=== PATIENT | male | born 1955 | race Caucasian/White ===

== ENCOUNTER 2016-07-28 17:33 | Emergency (ER) | payer MEDICARE, MEDICAID ==
[~2016-07-28] VITALS: Ht 188 cm; Wt 111.6 kg
[~2016-07-28 17:33] MED LIST: /MIRT30TA OR; /PANT40TA OR; ABIL2TAB OR; ABIL2TAB PO; ACCUKIT13 XX; ACCUMIS XX; ALBU17IN INH; AMBI5TAB PO; ASPI325T OR; ASPI325T PO; ASPI325T10 PO; ATOR1TAB18 PO; BACT800T5 PO; BISAC5TA OR; BLOOKIT20 XX; BUSP1TAB PO; CLOP75TA2 PO; COLA50CA3 PO; CRES20TA OR; DIAB1.25 PO; EFFE75CA75 OR; EFFE75CA75 PO; GLYB25TA OR; HYDROCODONE PO; IBUP200C PO; INSUDET SC; INSUHUMDS SC; JANU100T PO; JANU50TA25 PO; JANU50TA8 PO; JANUMET OR; LYRI100C10 PO; METF1000 PO; NICO21PAT EXT; PANT40TA2 PO; PERC7.5T12 PO; PLAV75TA2 OR; PLAV75TA38 PO; REME30TA PO; SERT-138 PO; SIMV20TA2 PO; TOPR100T OR; TOPR100T PO; TOPR200T PO; TRAM150C5 PO; TRAM50TA2 OR; TYLE325T5 PO; ULTR50TA PO; VICO5TAB OR; VITMTA PO
[2016-07-28] MEDS ORDERED: INSULANT SC (17:45)
[2016-07-28] MEDS ORDERED: LIDOCAINE 1% MDV 20ML VIAL As Ordered ONE (18:03)
[2016-07-28] MEDS ORDERED: LIDOCAINE 1% SDV INJ 30 ML VIAL SC SCH (18:15)
[2016-07-28] MEDS ORDERED: LIDOCAINE 1% MDV 20ML VIAL SC SCH (18:15)
[2016-07-28] MEDS ORDERED: ALPRAZolam 0.25 MG TAB PO ONE (18:30)
[2016-07-28] MEDS ORDERED: BACT800T5 PO (19:03)
[2016-07-28 19:12] VITALS: BP 117/82
[2016-07-28] MEDS ORDERED: OXYCODONE/APAP 5MG/325MG(BULK FOR ED) 1 TABLET PO ONE (19:15)
[2016-07-28] MEDS ORDERED: BACTRIM 160MG/800MG DS TAB PO ONE (19:15)
== END 2016-07-28 19:21 | disposition home or self-care (01) ==
LOC: M ED 18:11
DX: L02.214 Cutaneous abscess of groin (principal); E11.9 Type 2 diabetes mellitus without complications; I25.10 Atherosclerotic heart disease of native coronary artery without angina pectoris; I25.2 Old myocardial infarction; Z79.899 Other long term (current) drug therapy; Z79.4 Long term (current) use of insulin; Z79.84 Long term (current) use of oral hypoglycemic drugs; Z88.1 Allergy status to other antibiotic agents; L23.1 Allergic contact dermatitis due to adhesives; F17.210 Nicotine dependence, cigarettes, uncomplicated

== ENCOUNTER → 2016-12-20 | Outpatient (REF) | payer MEDICARE, MEDICAID ==
[~2016-12-20] MED LIST changes: +AMBI10TA; -ATOR1TAB18 PO; +ATOR80TA59 PO; +DOXY100T PO; +INSULANT SC; -LYRI100C10 PO; -METF1000 PO; +METF10004 PO; +PLAV1TAB2 PO; -PLAV75TA38 PO; +PREG100CA PO; +RISP1TAB42
[2016-12-20 14:00] LABS: BASO % 0.4 % (0.0-1.0); EOS # 0.3 K/mm3 (0.0-0.50); EOS % 2.9 % (0.0-3.0); LARGE UNSTAINED CELL # 0.2 K/mm3 (0.0-0.4); LARGE UNSTAINED CELL % 2.3 % (0.0-4.0); LYMPH # 2.9 K/mm3 (1.5-4.5); LYMPH % 31.8 % (24.0-44.0); MEAN CORPUSCULAR HEMOGLOBIN 31.8 pg (27.0-33.0); MEAN CORPUSCULAR HGB CONC 34.2 g/dl (32.0-36.5); MEAN CORPUSCULAR VOLUME 93.1 fl (80.0-96.0); MONO # 0.6 K/mm3 (0.0-0.8); MONO % 6.3 % (0.0-5.0); NEUTROPHILS # 5.2 K/mm3 (1.8-7.7); NEUTROPHILS % 56.3 % (36.0-66.0); PLATELET COUNT, AUTOMATED 384 k/mm3 (150-450); RED CELL DISTRIBUTION WIDTH 12.6 % (11.5-14.5); WHITE BLOOD COUNT 9.2 K/mm3 (4.0-10.0)
[2016-12-20 14:11] LABS: ALBUMIN 3.6 GM/DL (3.2-5.2); ALBUMIN/GLOBULIN RATIO 1.13 (1.00-1.93); BILIRUBIN,TOTAL 0.2 MG/DL (0.2-1.0); CALCIUM LEVEL 9.5 MG/DL (8.5-10.1); CREATININE FOR GFR 1.49 MG/DL (0.70-1.30); GLOMERULAR FILTRATION RATE 51.4 (>56); TOTAL PROTEIN 6.8 GM/DL (6.4-8.2)
[2016-12-20 14:16] LABS: POTASSIUM SERUM 5.3 MEQ/L (3.5-5.1)
== END ==
LOC: M LABDRAW1 10:21
PROVIDERS: ATTEND Nurse Practitioner Psychiatric/Mental Health
DX: F34.1 Dysthymic disorder (principal); Z79.899 Other long term (current) drug therapy

== ENCOUNTER 2016-12-26 11:10 | Emergency (ER) | payer MEDICARE, MEDICAID ==
[~2016-12-26] VITALS: Ht 188 cm; Wt 106.8 kg
[~2016-12-26 11:10] MED LIST changes: -AMBI10TA; -DOXY100T PO; -RISP1TAB42
[2016-12-26] MEDS ORDERED: AMBI10TA (11:21)
[2016-12-26] MEDS ORDERED: RISP1TAB42 (11:21)
[2016-12-26] MEDS ORDERED: ALBUTEROL SULFATE 2.5 MG/0.5 ML INH NEB SOLN NEB ONE (12:00)
[2016-12-26 12:27] LABS: BASO % 0.4 % (0.0-1.0); EOS # 0.2 10^3/uL (0.0-0.50); EOS % 1.8 % (0.0-3.0); IMMATURE GRANULOCYTE % 0.3 % (0-0); LYMPH # 2.9 10^3/uL (1.5-4.5); LYMPH % 28.7 % (24.0-44.0); MEAN CORPUSCULAR HEMOGLOBIN 30.7 pg (27.0-33.0); MEAN CORPUSCULAR VOLUME 90.1 fl (80.0-96.0); MONO % 9.6 % (0.0-5.0); NEUTROPHILS % 59.2 % (36.0-66.0); PLATELET COUNT, AUTOMATED 338 10^3/uL (150-450); RED CELL DISTRIBUTION WIDTH 12.8 % (11.5-14.5); WHITE BLOOD COUNT 10.1 10^3/uL (4.0-10.0)
[2016-12-26 12:57] LABS: ANION GAP 8 MEQ/L (8-16); BLOOD UREA NITROGEN 20 MG/DL (7-18); CALCIUM LEVEL 9.3 MG/DL (8.5-10.1); CARBON DIOXIDE LEVEL 23 MEQ/L (21-32); CHLORIDE LEVEL 99 MEQ/L (98-107); CREATININE FOR GFR 1.52 MG/DL (0.70-1.30); GLOMERULAR FILTRATION RATE 50.2 (>56); POTASSIUM SERUM 4.5 MEQ/L (3.5-5.1); SODIUM LEVEL 130 MEQ/L (136-145)
[2016-12-26 13:01] LABS: ALBUMIN 3.7 GM/DL (3.2-5.2); ALKALINE PHOSPHATASE 97 U/L (45-117); ALT/SGPT 40 U/L (12-78); AST/SGOT 19 U/L (15-37); BILIRUBIN,DIRECT < 0.1 MG/DL (0.0-0.2); BILIRUBIN,TOTAL 0.3 MG/DL (0.2-1.0); THYROXINE (T4) 11.2 UG/DL (4.5-12.0); TOTAL PROTEIN 7.4 GM/DL (6.4-8.2)
[2016-12-26] MEDS ORDERED: INSULIN HUMAN REGULAR 100 UNITS in NS 99 ML IV SCH (13:03)
[2016-12-26 13:08] LABS: GLUCOSE, FASTING 563 MG/DL (70-105)
[2016-12-26 13:12] LABS: VENOUS BASE EXCESS -4.6 (-2.0-2.0); VENOUS O2 SATURATION 90.8 % (60.0-80.0); VENOUS PARTIAL PRESSURE CO2 37.7 mmHg (38.0-50.0); VENOUS PARTIAL PRESSURE O2 61.1 mmHg (30.0-50.0); VENOUS STANDARD HCO3 20.6 MEQ/L; VENOUS TOTAL CO2 21.6 MEQ/L (24.0-28.0)
[2016-12-26] MEDS ORDERED: INSULIN IV RATE CHANGE DOCUMENTATION ML/HR XX SCH (13:15)
--- NOTE | 2016-12-26 13:35 | REP ---
CHEST, TWO VIEWS: COMPARISON: 10/27/2015. There is no evidence of acute infiltrate. No pleural effusion is seen. The heart is normal in size. The mediastinal silhouette is unremarkable. The visualized osseous structures are intact. There is a single lead pacemaker. IMPRESSION: No acute pulmonary disease. Signed by Hola Mccarthy MD 12/26/2016 05:06 P
[2016-12-26] MEDS ORDERED: NS 1,000 ML IV ONE (13:45)
[2016-12-26 14:37] VITALS: BP 106/60
[2016-12-26] MEDS ORDERED: DOXY100T PO (15:06)
--- NOTE | 2016-12-27 20:38 | ECGEPIP ---
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
[2016-12-29] MEDS ORDERED: INFLUENZA QUADRIVALENT PF VACCINE 0.5ML SYRINGE (90686) IM ONE (09:00)
== END 2016-12-26 15:27 | disposition left against medical advice (07) ==
LOC: M ED 11:10
DX: E11.65 Type 2 diabetes mellitus with hyperglycemia (principal); L02.31 Cutaneous abscess of buttock; I25.10 Atherosclerotic heart disease of native coronary artery without angina pectoris; I25.2 Old myocardial infarction; I10 Essential (primary) hypertension; J44.9 Chronic obstructive pulmonary disease, unspecified; Z72.0 Tobacco use; F12.10 Cannabis abuse, uncomplicated; E78.4 Other hyperlipidemia; Z86.73 Personal history of transient ischemic attack (TIA), and cerebral infarction without residual deficits

== ENCOUNTER → 2017-02-28 | Outpatient (REF) | payer MEDICARE, MEDICAID ==
[~2017-02-28] MED LIST changes: +AMBI10TA; +DOXY100T PO; +RISP1TAB42
[2017-02-28 14:04] LABS: BASO % 0.4 % (0.0-1.0); EOS # 0.3 10^3/uL (0.0-0.50); IMMATURE GRANULOCYTE % 0.4 % (0-0); LYMPH # 3.5 10^3/uL (1.5-4.5); LYMPH % 32.1 % (24.0-44.0); MEAN CORPUSCULAR HEMOGLOBIN 30.1 pg (27.0-33.0); MEAN CORPUSCULAR HGB CONC 33.5 g/dl (32.0-36.5); MEAN CORPUSCULAR VOLUME 89.8 fl (80.0-96.0); MONO # 1.3 10^3/uL (0.0-0.8); NEUTROPHILS # 5.6 10^3/uL (1.8-7.7); NEUTROPHILS % 52.1 % (36.0-66.0); PLATELET COUNT, AUTOMATED 460 10^3/uL (150-450); RED CELL DISTRIBUTION WIDTH 13.2 % (11.5-14.5); WHITE BLOOD COUNT 10.8 10^3/uL (4.0-10.0)
[2017-02-28 14:36] LABS: ALBUMIN 3.5 GM/DL (3.2-5.2); BILIRUBIN,TOTAL 0.2 MG/DL (0.2-1.0); CALCIUM LEVEL 9.4 MG/DL (8.5-10.1); CREATININE FOR GFR 1.48 MG/DL (0.70-1.30); GLOMERULAR FILTRATION RATE 51.8 (>56); POTASSIUM SERUM 4.9 MEQ/L (3.5-5.1)
== END ==
LOC: M LAB REF 12:53
PROVIDERS: ATTEND Family Medicine Addiction Medicine
DX: E11.65 Type 2 diabetes mellitus with hyperglycemia (principal)

== ENCOUNTER → 2017-03-21 | Outpatient (CLI) | payer MEDICARE, MEDICAID | LOC: M PAIN 13:00 | DX: G89.29 Other chronic pain (principal); M54.5 Low back pain; G62.9 Polyneuropathy, unspecified; E11.9 Type 2 diabetes mellitus without complications; I10 Essential (primary) hypertension; F17.210 Nicotine dependence, cigarettes, uncomplicated; Z79.4 Long term (current) use of insulin; Z79.899 Other long term (current) drug therapy; Z86.79 Personal history of other diseases of the circulatory system | CPT/HCPCS: G0463 ==

== ENCOUNTER → 2017-10-03 | Outpatient (REF) | payer MEDICARE ==
[2017-10-03 17:04] LABS: ALBUMIN 3.4 GM/DL (3.2-5.2); ALBUMIN/GLOBULIN RATIO 0.97 (1.00-1.93); ALKALINE PHOSPHATASE 88 U/L (45-117); ALT/SGPT 31 U/L (12-78); ANION GAP 9 MEQ/L (8-16); AST/SGOT 17 U/L (7-37); BILIRUBIN,TOTAL 0.2 MG/DL (0.2-1.0); BLOOD UREA NITROGEN 33 MG/DL (7-18); CALCIUM LEVEL 8.8 MG/DL (8.8-10.2); CARBON DIOXIDE LEVEL 22 MEQ/L (21-32); CHLORIDE LEVEL 104 MEQ/L (98-107); CREATININE FOR GFR 1.62 MG/DL (0.70-1.30); GLOMERULAR FILTRATION RATE 46.5 (>49); GLUCOSE, FASTING 235 MG/DL (70-100); POTASSIUM SERUM 4.6 MEQ/L (3.5-5.1); SODIUM LEVEL 135 MEQ/L (136-145); TOTAL PROTEIN 6.9 GM/DL (6.4-8.2)
[2017-10-03 17:24] LABS: ESTIMATED AVERAGE GLUCOSE 258 MG/DL (60-110); HEMOGLOBIN A1c 10.6 %
== END ==
LOC: M LAB REF 16:31
DX: E11.40 Type 2 diabetes mellitus with diabetic neuropathy, unspecified (principal)
CPT/HCPCS: 80053

== ENCOUNTER → 2017-11-21 | Outpatient (CLI) | payer MEDICARE | LOC: M RAD 08:47 | DX: N18.3 Chronic kidney disease, stage 3 (moderate) (principal) | CPT/HCPCS: 76775 ==

== ENCOUNTER 2018-01-07 12:27 | Emergency (ER) | payer MEDICARE ==
[2018-01-07 13:02] LABS: HEMATOCRIT 40.2 % (42.0-52.0); HEMOGLOBIN 13.3 g/dl (13.5-17.5); MEAN CORPUSCULAR HEMOGLOBIN 29.7 pg (27.0-33.0); MEAN CORPUSCULAR HGB CONC 33.1 g/dl (32.0-36.5); MEAN CORPUSCULAR VOLUME 89.7 fl (80.0-96.0); PLATELET COUNT, AUTOMATED 358 10^3/uL (150-450); RED BLOOD COUNT 4.48 10^6/uL (4.30-6.10); RED CELL DISTRIBUTION WIDTH 14.2 % (11.5-14.5); WHITE BLOOD COUNT 12.5 10^3/uL (4.0-10.0)
[2018-01-07 13:14] LABS: ADD MANUAL DIFFER YES; DIFF SLIDE NUMBER 295; POSITIVE DIFF POS FLAG; POSITIVE MORPH POS FLAG
[2018-01-07 13:22] LABS: ANION GAP 8 MEQ/L (8-16); BLOOD UREA NITROGEN 26 MG/DL (7-18); CALCIUM LEVEL 8.7 MG/DL (8.8-10.2); CARBON DIOXIDE LEVEL 24 MEQ/L (21-32); CHLORIDE LEVEL 106 MEQ/L (98-107); GLOMERULAR FILTRATION RATE 41.2 (>49); GLUCOSE, FASTING 159 MG/DL (70-100); POTASSIUM SERUM 4.5 MEQ/L (3.5-5.1); SODIUM LEVEL 138 MEQ/L (136-145)
[2018-01-07] MEDS: NS 1,000 ML IV ×3 (13:24→15:49)
[2018-01-07 13:34] LABS: EOSINOPHILS 1 % (0-5); LYMPHOCYTES 45 % (16-52); MONOCYTES 2 % (0-8); NEUTROPHILS 52 % (35-75); PLATELET ESTIMATE NORMAL (NORMAL)
[2018-01-07] MEDS: ADACEL/BOOSTRIX VACCINE (DIPHTH/PERTUSS/ACELL/TETANUS)0.5ML SYR (90715) IM (14:29)
[2018-01-07] MEDS: ceFAZolin SOD 1 GM in D5W MINI-BAG PLUS 50 ML IV (14:29)
[2018-01-07 15:39] LABS: ALBUMIN/GLOBULIN RATIO 0.81 (1.00-1.93); ALKALINE PHOSPHATASE 67 U/L (45-117); ALT/SGPT 36 U/L (12-78); AMYLASE 36 U/L (25-115); AST/SGOT 27 U/L (7-37); BILIRUBIN,DIRECT < 0.1 MG/DL (0.0-0.2); BILIRUBIN,TOTAL 0.2 MG/DL (0.2-1.0); CPK CREATINE PHOSPHOKINASE 193 U/L (39-308); MB/CK RELATIVE INDEX 2.07 (< OR =4); TOTAL PROTEIN 6.7 GM/DL (6.4-8.2)
[2018-01-07] MEDS: MORPHINE 2 MG/ML 1ML SYRINGE (J2270) IV (15:49)
[2018-01-07 16:01] LABS: INR 1.04; PROTHROMBIN TIME 13.7 SECONDS (12.1-14.4)
[2018-01-07 16:02] LABS: PARTIAL THROMBOPLASTIN TIME 22.7 SECONDS (25.4-37.6)
[2018-01-07 16:03] LABS: TROPONIN I < 0.02 NG/ML (< 0.10)
[2018-01-07 16:33] LABS: BASO % 0.3 % (0.0-1.0); EOS # 0.3 10^3/uL (0.0-0.50); EOS % 1.6 % (0.0-3.0); HEMATOCRIT 38.2 % (42.0-52.0); HEMOGLOBIN 12.5 g/dl (13.5-17.5); IMMATURE GRANULOCYTE % 0.5 % (0-3.0); LYMPH # 2.6 10^3/uL (1.5-4.5); LYMPH % 16.8 % (24.0-44.0); MEAN CORPUSCULAR HEMOGLOBIN 29.8 pg (27.0-33.0); MEAN CORPUSCULAR HGB CONC 32.7 g/dl (32.0-36.5); MONO # 1.4 10^3/uL (0.0-0.8); NEUTROPHILS # 11.3 10^3/uL (1.8-7.7); NEUTROPHILS % 71.8 % (36.0-66.0); PLATELET COUNT, AUTOMATED 298 10^3/uL (150-450); RED CELL DISTRIBUTION WIDTH 14.3 % (11.5-14.5); WHITE BLOOD COUNT 15.7 10^3/uL (4.0-10.0)
[2018-01-07] MEDS: fentaNYL 100 MCG/2 ML INJECTION (J3010) IV (17:00)
[2018-01-07 17:03] LABS: LACTIC ACID SEPSIS PROTOCOL 1.5 MMOL/L (0.4-2.0)
[2018-01-09 11:22] LABS: BEDSIDE GLUCOSE 167 MG/DL (80-115)
== END 2018-01-07 17:13 | disposition short-term general hospital (02) ==
LOC: M ED 12:27
DX: I20.0 Unstable angina (principal); S82.831A Other fracture of upper and lower end of right fibula, initial encounter for closed fracture; S82.301A Unspecified fracture of lower end of right tibia, initial encounter for closed fracture; W19.XXXA Unspecified fall, initial encounter; Y92.099 Unspecified place in other non-institutional residence as the place of occurrence of the external cause; Y93.9 Activity, unspecified; Y99.9 Unspecified external cause status; I25.10 Atherosclerotic heart disease of native coronary artery without angina pectoris; E11.9 Type 2 diabetes mellitus without complications; I10 Essential (primary) hypertension; F31.9 Bipolar disorder, unspecified; I34.9 Nonrheumatic mitral valve disorder, unspecified; Z72.0 Tobacco use; Z79.4 Long term (current) use of insulin; Z79.899 Other long term (current) drug therapy; Z88.1 Allergy status to other antibiotic agents; Z91.89 Other specified personal risk factors, not elsewhere classified

== ENCOUNTER 2018-01-10 15:00 | Inpatient (IN) | payer MEDICARE ==
[2018-01-10 16:56] LABS: BEDSIDE GLUCOSE 173 MG/DL (80-115)
[2018-01-10] MEDS ORDERED: GLUCOSE 4 GM CHEW TABLET PO (17:00)
[2018-01-10] MEDS: traMADol 50 MG TAB PO (17:00)
[2018-01-10] MEDS ORDERED: NITROGLYCERIN 0.3 MG SUBL TAB SL (17:00)
[2018-01-10] MEDS ORDERED: GLUCAGON FOR INJ 1 MG VIAL (J1610) SC (17:00)
[2018-01-10] MEDS ORDERED: DEXTROSE 50% 50 ML SYRINGE IV (17:00)
[2018-01-10] MEDS ORDERED: ACETAMINOPHEN TAB 650MG DOSE (2X325MG) PO (17:15)
[2018-01-10] MEDS: HumaLOG INSULIN (NovoLOG) PER UNIT SC (18:21)
[2018-01-10] MEDS: PERCOCET 5MG/325MG TAB PO (18:54)
[2018-01-10] MEDS: SENNA 8.6 MG TAB (SENOKOT) PO (21:00)
[2018-01-10] MEDS: DOCUSATE SODIUM 100 MG CAP PO (21:00)
[2018-01-10 21:46] LABS: BEDSIDE GLUCOSE 262 MG/DL (80-115)
[2018-01-10] MEDS: SIMVASTATIN 40 MG TAB PO (21:47)
[2018-01-10] MEDS: LEVEMIR (INSULIN DETEMIR) 1 UNITS/0.01ML SC (21:47)
[2018-01-10] MEDS: busPIRone 5 MG TAB PO (21:47)
[2018-01-10] MEDS: METOPROLOL SUCC *XL* 25MG TAB (TopROL *XL*) PO (21:47)
[2018-01-10] MEDS: VENLAFAXINE **XR** 75MG CAPSULE PO (21:47)
[2018-01-10] MEDS: traZODone 50 MG TAB PO (21:48)
[2018-01-10] MEDS: PREGABALIN 75 MG CAP(LYRICA) PO (21:48)
[2018-01-10] MEDS: AMITRIPTYLINE 25 MG TAB PO (21:48)
[2018-01-10] MEDS: lamoTRIgine 25 MG TAB PO (21:48)
[2018-01-10] MEDS: SODIUM CHLORIDE NASAL 0.65% SPRAY BTL (OCEAN) (21:49)
[2018-01-11 04:05] LABS: APPEARANCE, URINE CLEAR (CLEAR); BACTERIA, URINE AUTO NEGATIVE (NEGATIVE); BILIRUBIN, URINE AUTO NEGATIVE (NEGATIVE); BLOOD, URINE BLOOD NEGATIVE (NEGATIVE); COLOR, URINE YELLOW (YELLOW); GLUCOSE, URINE (UA) AUTO 3+ mg/dL (NEGATIVE); KETONE, URINE AUTO NEGATIVE (NEGATIVE); LEUKOCYTE ESTERASE, URINE AUTO NEGATIVE (NEGATIVE); NITRITE, URINE AUTO NEGATIVE (NEGATIVE); PROTEIN, URINE AUTO NEGATIVE (NEGATIVE); RBC, URINE AUTO 1 /HPF (0-3); SPECIFIC GRAVITY URINE AUTO 1.014 (1.002-1.035); SQUAMOUS EPITHELIAL CELL UR AU 0 /HPF (0-6); WBC, URINE AUTO 0 /HPF (0-3)
[2018-01-11 06:01] LABS: BEDSIDE GLUCOSE 211 MG/DL (80-115)
[2018-01-11 07:08] LABS: BASO % 0.4 % (0.0-1.0); EOS # 0.3 10^3/uL (0.0-0.50); EOS % 3.1 % (0.0-3.0); HEMATOCRIT 34.6 % (42.0-52.0); HEMOGLOBIN 11.4 g/dl (13.5-17.5); IMMATURE GRANULOCYTE % 0.7 % (0-3.0); LYMPH # 2.7 10^3/uL (1.5-4.5); LYMPH % 24.9 % (24.0-44.0); MEAN CORPUSCULAR HEMOGLOBIN 29.7 pg (27.0-33.0); MEAN CORPUSCULAR HGB CONC 32.9 g/dl (32.0-36.5); MEAN CORPUSCULAR VOLUME 90.1 fl (80.0-96.0); MONO # 1.5 10^3/uL (0.0-0.8); MONO % 13.6 % (0.0-5.0); NEUTROPHILS # 6.2 10^3/uL (1.8-7.7); NEUTROPHILS % 57.3 % (36.0-66.0); PLATELET COUNT, AUTOMATED 352 10^3/uL (150-450); RED BLOOD COUNT 3.84 10^6/uL (4.30-6.10); RED CELL DISTRIBUTION WIDTH 13.8 % (11.5-14.5); WHITE BLOOD COUNT 10.8 10^3/uL (4.0-10.0)
[2018-01-11 07:42] LABS: ALBUMIN 2.7 GM/DL (3.2-5.2); ALBUMIN/GLOBULIN RATIO 0.63 (1.00-1.93); ALKALINE PHOSPHATASE 72 U/L (45-117); ALT/SGPT 20 U/L (12-78); ANION GAP 9 MEQ/L (8-16); AST/SGOT 21 U/L (7-37); BILIRUBIN,TOTAL 0.3 MG/DL (0.2-1.0); BLOOD UREA NITROGEN 19 MG/DL (7-18); CALCIUM LEVEL 8.5 MG/DL (8.8-10.2); CARBON DIOXIDE LEVEL 28 MEQ/L (21-32); CHLORIDE LEVEL 101 MEQ/L (98-107); CREATININE FOR GFR 1.19 MG/DL (0.70-1.30); GLOMERULAR FILTRATION RATE > 60.0 (>49); GLUCOSE, FASTING 197 MG/DL (70-100); POTASSIUM SERUM 4.1 MEQ/L (3.5-5.1); SODIUM LEVEL 138 MEQ/L (136-145)
[2018-01-11] MEDS: PERCOCET 5MG/325MG TAB PO ×3 (08:38→20:24)
[2018-01-11] MEDS: SODIUM CHLORIDE NASAL 0.65% SPRAY BTL (OCEAN) ×2 (09:00→20:25)
[2018-01-11] MEDS: DOCUSATE SODIUM 100 MG CAP PO ×2 (09:00→20:31)
[2018-01-11] MEDS: busPIRone 5 MG TAB PO ×3 (09:44→20:23)
[2018-01-11] MEDS: TAMSULOSIN 0.4 MG CAP PO (09:44)
[2018-01-11] MEDS: ENOXAPARIN 40 MG/0.4 ML SYRINGE (J1650) SC (09:44)
[2018-01-11] MEDS: VENLAFAXINE **XR** 75MG CAPSULE PO ×2 (09:44→20:24)
[2018-01-11] MEDS: PANTOPRAZOLE 40MG TAB (PROTONIX) PO (09:44)
[2018-01-11] MEDS: METOPROLOL SUCC *XL* 25MG TAB (TopROL *XL*) PO ×2 (09:45→20:24)
[2018-01-11] MEDS: PREGABALIN 75 MG CAP(LYRICA) PO ×3 (09:45→20:23)
[2018-01-11] MEDS: lamoTRIgine 25 MG TAB PO ×2 (09:45→20:24)
[2018-01-11] MEDS: FLUBLOK(EGG FREE)(QUAD)INFLUENZA VACC 0.5ML SYRINGE (90682)18YRS&OLDER IM (10:36)
[2018-01-11] MEDS: HumaLOG INSULIN (NovoLOG) PER UNIT SC ×3 (10:37→17:49)
[2018-01-11] MEDS: LEVEMIR (INSULIN DETEMIR) 1 UNITS/0.01ML SC ×2 (11:49→20:25)
[2018-01-11 12:01] LABS: BEDSIDE GLUCOSE 171 MG/DL (80-115)
[2018-01-11 16:44] LABS: BEDSIDE GLUCOSE 279 MG/DL (80-115)
[2018-01-11 19:32] LABS: BEDSIDE GLUCOSE 219 MG/DL (80-115)
[2018-01-11] MEDS: traZODone 50 MG TAB PO (20:24)
[2018-01-11] MEDS: SIMVASTATIN 40 MG TAB PO (20:24)
[2018-01-11] MEDS: AMITRIPTYLINE 25 MG TAB PO (20:24)
[2018-01-11] MEDS: SENNA 8.6 MG TAB (SENOKOT) PO (20:31)
[2018-01-12 06:34] LABS: BEDSIDE GLUCOSE 238 MG/DL (80-115)
[2018-01-12] MEDS: busPIRone 5 MG TAB PO ×3 (08:30→21:37)
[2018-01-12] MEDS: PANTOPRAZOLE 40MG TAB (PROTONIX) PO (08:30)
[2018-01-12] MEDS: TAMSULOSIN 0.4 MG CAP PO (08:30)
[2018-01-12] MEDS: DOCUSATE SODIUM 100 MG CAP PO ×2 (08:30→21:37)
[2018-01-12] MEDS: PREGABALIN 75 MG CAP(LYRICA) PO ×3 (08:30→21:37)
[2018-01-12] MEDS: lamoTRIgine 25 MG TAB PO ×2 (08:30→21:37)
[2018-01-12] MEDS: VENLAFAXINE **XR** 75MG CAPSULE PO ×2 (08:30→21:36)
[2018-01-12] MEDS: METOPROLOL SUCC *XL* 25MG TAB (TopROL *XL*) PO ×2 (08:30→21:36)
[2018-01-12] MEDS: PERCOCET 5MG/325MG TAB PO ×4 (08:30→21:46)
[2018-01-12] MEDS: ENOXAPARIN 40 MG/0.4 ML SYRINGE (J1650) SC (08:31)
[2018-01-12] MEDS: LEVEMIR (INSULIN DETEMIR) 1 UNITS/0.01ML SC ×2 (08:31→21:38)
[2018-01-12] MEDS: SODIUM CHLORIDE NASAL 0.65% SPRAY BTL (OCEAN) ×2 (08:31→21:39)
[2018-01-12] MEDS: HumaLOG INSULIN (NovoLOG) PER UNIT SC ×3 (08:31→16:55)
[2018-01-12 11:25] LABS: BEDSIDE GLUCOSE 195 MG/DL (80-115)
[2018-01-12] MEDS: IPRATROPIUM 0.5MG/ALBUTEROL 2.5MG INH SOL UD 3ML (DUONEB)(J7620) NEB (11:30)
[2018-01-12 16:34] LABS: BEDSIDE GLUCOSE 236 MG/DL (80-115)
[2018-01-12 19:38] LABS: BEDSIDE GLUCOSE 263 MG/DL (80-115)
[2018-01-12] MEDS: traZODone 50 MG TAB PO (21:35)
[2018-01-12] MEDS: AMITRIPTYLINE 25 MG TAB PO (21:36)
[2018-01-12] MEDS: SENNA 8.6 MG TAB (SENOKOT) PO (21:38)
[2018-01-12] MEDS: SIMVASTATIN 40 MG TAB PO (21:38)
[2018-01-13 05:45] LABS: BEDSIDE GLUCOSE 223 MG/DL (80-115)
[2018-01-13 06:29] LABS: HEMATOCRIT 34.6 % (42.0-52.0); HEMOGLOBIN 11.5 g/dl (13.5-17.5); MEAN CORPUSCULAR HEMOGLOBIN 29.6 pg (27.0-33.0); MEAN CORPUSCULAR HGB CONC 33.2 g/dl (32.0-36.5); MEAN CORPUSCULAR VOLUME 89.2 fl (80.0-96.0); PLATELET COUNT, AUTOMATED 441 10^3/uL (150-450); RED BLOOD COUNT 3.88 10^6/uL (4.30-6.10); RED CELL DISTRIBUTION WIDTH 13.5 % (11.5-14.5)
[2018-01-13] MEDS: PREGABALIN 75 MG CAP(LYRICA) PO ×3 (08:57→21:20)
[2018-01-13] MEDS: VENLAFAXINE **XR** 75MG CAPSULE PO ×2 (08:57→21:21)
[2018-01-13] MEDS: busPIRone 5 MG TAB PO ×3 (08:57→21:21)
[2018-01-13] MEDS: HumaLOG INSULIN (NovoLOG) PER UNIT SC ×3 (08:57→17:12)
[2018-01-13] MEDS: PANTOPRAZOLE 40MG TAB (PROTONIX) PO (08:57)
[2018-01-13] MEDS: TAMSULOSIN 0.4 MG CAP PO (08:57)
[2018-01-13] MEDS: LEVEMIR (INSULIN DETEMIR) 1 UNITS/0.01ML SC ×2 (08:58→21:22)
[2018-01-13] MEDS: METOPROLOL SUCC *XL* 25MG TAB (TopROL *XL*) PO ×2 (08:58→21:20)
[2018-01-13] MEDS: lamoTRIgine 25 MG TAB PO ×2 (08:58→21:21)
[2018-01-13] MEDS: SODIUM CHLORIDE NASAL 0.65% SPRAY BTL (OCEAN) ×2 (08:59→21:22)
[2018-01-13] MEDS: ENOXAPARIN 40 MG/0.4 ML SYRINGE (J1650) SC (08:59)
[2018-01-13] MEDS: DOCUSATE SODIUM 100 MG CAP PO ×2 (09:01→20:14)
[2018-01-13] MEDS: PERCOCET 5MG/325MG TAB PO ×3 (09:01→18:38)
[2018-01-13 11:51] LABS: BEDSIDE GLUCOSE 266 MG/DL (80-115)
[2018-01-13 17:09] LABS: BEDSIDE GLUCOSE 231 MG/DL (80-115)
[2018-01-13] MEDS: LIDOCAINE 5% (LIDODERM) PATCH TD (18:38)
[2018-01-13] MEDS: SENNA 8.6 MG TAB (SENOKOT) PO (20:15)
[2018-01-13 21:09] LABS: BEDSIDE GLUCOSE 269 MG/DL (80-115)
[2018-01-13] MEDS: traZODone 50 MG TAB PO (21:20)
[2018-01-13] MEDS: AMITRIPTYLINE 25 MG TAB PO (21:21)
[2018-01-13] MEDS: SIMVASTATIN 40 MG TAB PO (21:21)
[2018-01-14] MEDS: **NOTE PATIENT COMMENT** MISC XX (06:00)
[2018-01-14 07:10] LABS: BEDSIDE GLUCOSE 242 MG/DL (80-115)
[2018-01-14] MEDS: PREGABALIN 75 MG CAP(LYRICA) PO ×3 (08:50→21:52)
[2018-01-14] MEDS: ENOXAPARIN 40 MG/0.4 ML SYRINGE (J1650) SC (08:50)
[2018-01-14] MEDS: HumaLOG INSULIN (NovoLOG) PER UNIT SC ×3 (08:50→17:55)
[2018-01-14] MEDS: TAMSULOSIN 0.4 MG CAP PO (08:51)
[2018-01-14] MEDS: METOPROLOL SUCC *XL* 25MG TAB (TopROL *XL*) PO ×2 (08:51→21:53)
[2018-01-14] MEDS: PERCOCET 5MG/325MG TAB PO ×3 (08:51→20:10)
[2018-01-14] MEDS: busPIRone 5 MG TAB PO ×3 (08:52→21:52)
[2018-01-14] MEDS: DOCUSATE SODIUM 100 MG CAP PO ×2 (08:52→21:00)
[2018-01-14] MEDS: PANTOPRAZOLE 40MG TAB (PROTONIX) PO (08:52)
[2018-01-14] MEDS: VENLAFAXINE **XR** 75MG CAPSULE PO ×2 (08:52→21:52)
[2018-01-14] MEDS: lamoTRIgine 25 MG TAB PO ×2 (08:52→21:52)
[2018-01-14] MEDS: SODIUM CHLORIDE NASAL 0.65% SPRAY BTL (OCEAN) ×2 (08:53→21:53)
[2018-01-14] MEDS: LEVEMIR (INSULIN DETEMIR) 1 UNITS/0.01ML SC ×3 (08:53→21:52)
[2018-01-14 11:31] LABS: BEDSIDE GLUCOSE 329 MG/DL (80-115)
[2018-01-14 16:49] LABS: BEDSIDE GLUCOSE 344 MG/DL (80-115)
[2018-01-14] MEDS: NovoLOG MIX 70/30 PER UNIT SC (18:13)
[2018-01-14 19:43] LABS: BEDSIDE GLUCOSE 248 MG/DL (80-115)
[2018-01-14] MEDS: SENNA 8.6 MG TAB (SENOKOT) PO (21:00)
[2018-01-14] MEDS: SIMVASTATIN 40 MG TAB PO (21:52)
[2018-01-14] MEDS: traZODone 50 MG TAB PO (21:53)
[2018-01-14] MEDS: AMITRIPTYLINE 25 MG TAB PO (21:53)
[2018-01-15 06:46] LABS: BEDSIDE GLUCOSE 245 MG/DL (80-115)
[2018-01-15] MEDS: PERCOCET 5MG/325MG TAB PO ×3 (07:38→18:13)
[2018-01-15] MEDS: HumaLOG INSULIN (NovoLOG) PER UNIT SC ×3 (08:54→17:11)
[2018-01-15] MEDS: LEVEMIR (INSULIN DETEMIR) 1 UNITS/0.01ML SC ×2 (08:54→21:14)
[2018-01-15] MEDS: ENOXAPARIN 40 MG/0.4 ML SYRINGE (J1650) SC (08:54)
[2018-01-15] MEDS: TAMSULOSIN 0.4 MG CAP PO (08:55)
[2018-01-15] MEDS: PANTOPRAZOLE 40MG TAB (PROTONIX) PO (08:55)
[2018-01-15] MEDS: NovoLOG MIX 70/30 PER UNIT SC ×3 (08:55→17:12)
[2018-01-15] MEDS: SODIUM CHLORIDE NASAL 0.65% SPRAY BTL (OCEAN) ×2 (08:56→21:42)
[2018-01-15] MEDS: PREGABALIN 75 MG CAP(LYRICA) PO ×3 (08:56→21:17)
[2018-01-15] MEDS: busPIRone 5 MG TAB PO ×3 (08:56→21:16)
[2018-01-15] MEDS: lamoTRIgine 25 MG TAB PO ×2 (08:56→21:17)
[2018-01-15] MEDS: VENLAFAXINE **XR** 75MG CAPSULE PO ×2 (08:56→21:16)
[2018-01-15] MEDS: DOCUSATE SODIUM 100 MG CAP PO ×2 (08:57→21:42)
[2018-01-15] MEDS: METOPROLOL SUCC *XL* 25MG TAB (TopROL *XL*) PO ×2 (08:57→21:17)
[2018-01-15 11:47] LABS: BEDSIDE GLUCOSE 317 MG/DL (80-115)
[2018-01-15 16:40] LABS: BEDSIDE GLUCOSE 324 MG/DL (80-115)
[2018-01-15] MEDS: AMITRIPTYLINE 25 MG TAB PO (21:15)
[2018-01-15 21:16] LABS: BEDSIDE GLUCOSE 195 MG/DL (80-115)
[2018-01-15] MEDS: SIMVASTATIN 40 MG TAB PO (21:17)
[2018-01-15] MEDS: traZODone 50 MG TAB PO (21:17)
[2018-01-15] MEDS: SENNA 8.6 MG TAB (SENOKOT) PO (21:42)
[2018-01-16 06:15] LABS: BEDSIDE GLUCOSE 246 MG/DL (80-115)
[2018-01-16] MEDS: PERCOCET 5MG/325MG TAB PO ×3 (07:26→21:04)
[2018-01-16] MEDS: NovoLOG MIX 70/30 PER UNIT SC ×3 (07:39→16:48)
[2018-01-16] MEDS: HumaLOG INSULIN (NovoLOG) PER UNIT SC ×3 (07:39→16:47)
[2018-01-16 08:17] LABS: HEMATOCRIT 34.9 % (42.0-52.0); HEMOGLOBIN 11.4 g/dl (13.5-17.5); MEAN CORPUSCULAR HEMOGLOBIN 29.1 pg (27.0-33.0); MEAN CORPUSCULAR HGB CONC 32.7 g/dl (32.0-36.5); PLATELET COUNT, AUTOMATED 525 10^3/uL (150-450); RED BLOOD COUNT 3.92 10^6/uL (4.30-6.10); RED CELL DISTRIBUTION WIDTH 13.4 % (11.5-14.5); WHITE BLOOD COUNT 10.9 10^3/uL (4.0-10.0)
[2018-01-16] MEDS: DOCUSATE SODIUM 100 MG CAP PO ×2 (09:00→21:00)
[2018-01-16] MEDS: SODIUM CHLORIDE NASAL 0.65% SPRAY BTL (OCEAN) ×2 (09:00→21:00)
[2018-01-16] MEDS: ENOXAPARIN 40 MG/0.4 ML SYRINGE (J1650) SC (10:00)
[2018-01-16] MEDS: TAMSULOSIN 0.4 MG CAP PO (10:00)
[2018-01-16] MEDS: PREGABALIN 75 MG CAP(LYRICA) PO ×3 (10:01→21:03)
[2018-01-16] MEDS: busPIRone 5 MG TAB PO ×3 (10:01→21:02)
[2018-01-16] MEDS: lamoTRIgine 25 MG TAB PO ×2 (10:01→21:03)
[2018-01-16] MEDS: METOPROLOL SUCC *XL* 25MG TAB (TopROL *XL*) PO ×2 (10:01→21:03)
[2018-01-16] MEDS: VENLAFAXINE **XR** 75MG CAPSULE PO ×2 (10:01→21:07)
[2018-01-16] MEDS: PANTOPRAZOLE 40MG TAB (PROTONIX) PO (10:02)
[2018-01-16] MEDS: LEVEMIR (INSULIN DETEMIR) 1 UNITS/0.01ML SC ×2 (10:02→21:02)
[2018-01-16 11:31] LABS: BEDSIDE GLUCOSE 221 MG/DL (80-115)
[2018-01-16 16:27] LABS: BEDSIDE GLUCOSE 279 MG/DL (80-115)
[2018-01-16 20:54] LABS: BEDSIDE GLUCOSE 199 MG/DL (80-115)
[2018-01-16] MEDS: SENNA 8.6 MG TAB (SENOKOT) PO (21:00)
[2018-01-16] MEDS: AMITRIPTYLINE 25 MG TAB PO (21:02)
[2018-01-16] MEDS: SIMVASTATIN 40 MG TAB PO (21:03)
[2018-01-16] MEDS: traZODone 50 MG TAB PO (21:07)
[2018-01-17 06:45] LABS: BEDSIDE GLUCOSE 208 MG/DL (80-115)
[2018-01-17] MEDS: PERCOCET 5MG/325MG TAB PO ×3 (07:56→17:50)
[2018-01-17] MEDS: LEVEMIR (INSULIN DETEMIR) 1 UNITS/0.01ML SC ×2 (07:57→22:40)
[2018-01-17] MEDS: NovoLOG MIX 70/30 PER UNIT SC ×3 (07:58→17:10)
[2018-01-17] MEDS: HumaLOG INSULIN (NovoLOG) PER UNIT SC ×3 (08:00→17:09)
[2018-01-17] MEDS: DOCUSATE SODIUM 100 MG CAP PO ×2 (09:26→22:41)
[2018-01-17] MEDS: VENLAFAXINE **XR** 75MG CAPSULE PO ×2 (09:26→22:39)
[2018-01-17] MEDS: ENOXAPARIN 40 MG/0.4 ML SYRINGE (J1650) SC (09:26)
[2018-01-17] MEDS: lamoTRIgine 25 MG TAB PO ×2 (09:27→22:38)
[2018-01-17] MEDS: TAMSULOSIN 0.4 MG CAP PO (09:27)
[2018-01-17] MEDS: busPIRone 5 MG TAB PO ×3 (09:27→22:38)
[2018-01-17] MEDS: METOPROLOL SUCC *XL* 25MG TAB (TopROL *XL*) PO ×2 (09:27→22:39)
[2018-01-17] MEDS: PANTOPRAZOLE 40MG TAB (PROTONIX) PO (09:27)
[2018-01-17] MEDS: PREGABALIN 75 MG CAP(LYRICA) PO ×3 (09:27→22:38)
[2018-01-17] MEDS: SODIUM CHLORIDE NASAL 0.65% SPRAY BTL (OCEAN) ×2 (09:28→22:40)
[2018-01-17 11:54] LABS: BEDSIDE GLUCOSE 202 MG/DL (80-115)
[2018-01-17] MEDS: BACTRIM 160MG/800MG DS TAB PO ×2 (15:33→22:39)
[2018-01-17 16:53] LABS: BEDSIDE GLUCOSE 226 MG/DL (80-115)
[2018-01-17 20:24] LABS: BEDSIDE GLUCOSE 195 MG/DL (80-115)
[2018-01-17] MEDS: SIMVASTATIN 40 MG TAB PO (22:39)
[2018-01-17] MEDS: traZODone 50 MG TAB PO (22:39)
[2018-01-17] MEDS: AMITRIPTYLINE 25 MG TAB PO (22:39)
[2018-01-17] MEDS: SENNA 8.6 MG TAB (SENOKOT) PO (22:41)
[2018-01-18 06:03] LABS: BASO # 0.1 10^3/uL (0.0-0.2); BASO % 0.5 % (0.0-1.0); EOS # 0.4 10^3/uL (0.0-0.50); EOS % 3.2 % (0.0-3.0); HEMATOCRIT 34.9 % (42.0-52.0); HEMOGLOBIN 11.2 g/dl (13.5-17.5); IMMATURE GRANULOCYTE % 0.8 % (0-3.0); LYMPH # 3.1 10^3/uL (1.5-4.5); LYMPH % 26.5 % (24.0-44.0); MEAN CORPUSCULAR HEMOGLOBIN 28.7 pg (27.0-33.0); MEAN CORPUSCULAR HGB CONC 32.1 g/dl (32.0-36.5); MEAN CORPUSCULAR VOLUME 89.5 fl (80.0-96.0); MONO # 1.5 10^3/uL (0.0-0.8); MONO % 12.4 % (0.0-5.0); NEUTROPHILS # 6.7 10^3/uL (1.8-7.7); NEUTROPHILS % 56.6 % (36.0-66.0); PLATELET COUNT, AUTOMATED 553 10^3/uL (150-450); RED CELL DISTRIBUTION WIDTH 13.5 % (11.5-14.5); WHITE BLOOD COUNT 11.8 10^3/uL (4.0-10.0)
[2018-01-18 06:34] LABS: ANION GAP 9 MEQ/L (8-16); BLOOD UREA NITROGEN 18 MG/DL (7-18); CALCIUM LEVEL 9.2 MG/DL (8.8-10.2); CARBON DIOXIDE LEVEL 25 MEQ/L (21-32); CHLORIDE LEVEL 103 MEQ/L (98-107); CREATININE FOR GFR 1.26 MG/DL (0.70-1.30); GLOMERULAR FILTRATION RATE > 60.0 (>49); GLUCOSE, FASTING 211 MG/DL (70-100); POTASSIUM SERUM 4.6 MEQ/L (3.5-5.1); SODIUM LEVEL 137 MEQ/L (136-145)
[2018-01-18] MEDS: NovoLOG MIX 70/30 PER UNIT SC ×3 (08:58→17:31)
[2018-01-18] MEDS: ENOXAPARIN 40 MG/0.4 ML SYRINGE (J1650) SC (08:59)
[2018-01-18] MEDS: HumaLOG INSULIN (NovoLOG) PER UNIT SC ×3 (08:59→17:30)
[2018-01-18] MEDS: LEVEMIR (INSULIN DETEMIR) 1 UNITS/0.01ML SC ×2 (08:59→21:31)
[2018-01-18] MEDS: PERCOCET 5MG/325MG TAB PO ×2 (09:00→17:31)
[2018-01-18] MEDS: TAMSULOSIN 0.4 MG CAP PO (09:00)
[2018-01-18] MEDS: busPIRone 5 MG TAB PO ×3 (09:00→21:28)
[2018-01-18] MEDS: DOCUSATE SODIUM 100 MG CAP PO ×2 (09:00→21:32)
[2018-01-18] MEDS: PANTOPRAZOLE 40MG TAB (PROTONIX) PO (09:00)
[2018-01-18] MEDS: lamoTRIgine 25 MG TAB PO ×2 (09:01→21:32)
[2018-01-18] MEDS: BACTRIM 160MG/800MG DS TAB PO ×2 (09:01→21:29)
[2018-01-18] MEDS: PREGABALIN 75 MG CAP(LYRICA) PO ×3 (09:01→21:28)
[2018-01-18] MEDS: VENLAFAXINE **XR** 75MG CAPSULE PO ×2 (09:01→21:29)
[2018-01-18] MEDS: SODIUM CHLORIDE NASAL 0.65% SPRAY BTL (OCEAN) ×2 (09:02→21:33)
[2018-01-18] MEDS: METOPROLOL SUCC *XL* 25MG TAB (TopROL *XL*) PO ×2 (09:02→21:29)
[2018-01-18 11:22] LABS: BEDSIDE GLUCOSE 224 MG/DL (80-115)
[2018-01-18 16:23] LABS: BEDSIDE GLUCOSE 233 MG/DL (80-115)
[2018-01-18 19:12] LABS: BEDSIDE GLUCOSE 273 MG/DL (80-115)
[2018-01-18] MEDS: AMITRIPTYLINE 25 MG TAB PO (21:28)
[2018-01-18] MEDS: SIMVASTATIN 40 MG TAB PO (21:29)
[2018-01-18] MEDS: traZODone 50 MG TAB PO (21:30)
[2018-01-18] MEDS: SENNA 8.6 MG TAB (SENOKOT) PO (21:32)
[2018-01-19 06:41] LABS: BEDSIDE GLUCOSE 174 MG/DL (80-115)
[2018-01-19 07:40] LABS: HEMATOCRIT 35.3 % (42.0-52.0); HEMOGLOBIN 11.4 g/dl (13.5-17.5); MEAN CORPUSCULAR HEMOGLOBIN 28.4 pg (27.0-33.0); MEAN CORPUSCULAR HGB CONC 32.3 g/dl (32.0-36.5); PLATELET COUNT, AUTOMATED 573 10^3/uL (150-450); RED BLOOD COUNT 4.01 10^6/uL (4.30-6.10); RED CELL DISTRIBUTION WIDTH 13.5 % (11.5-14.5); WHITE BLOOD COUNT 10.9 10^3/uL (4.0-10.0)
[2018-01-19] MEDS: PERCOCET 5MG/325MG TAB PO ×2 (07:40→13:50)
[2018-01-19] MEDS: HumaLOG INSULIN (NovoLOG) PER UNIT SC ×3 (09:11→17:03)
[2018-01-19] MEDS: NovoLOG MIX 70/30 PER UNIT SC ×3 (09:11→17:03)
[2018-01-19] MEDS: LEVEMIR (INSULIN DETEMIR) 1 UNITS/0.01ML SC ×2 (09:12→20:43)
[2018-01-19] MEDS: TAMSULOSIN 0.4 MG CAP PO (09:13)
[2018-01-19] MEDS: ENOXAPARIN 40 MG/0.4 ML SYRINGE (J1650) SC (09:13)
[2018-01-19] MEDS: PREGABALIN 75 MG CAP(LYRICA) PO ×3 (09:13→20:43)
[2018-01-19] MEDS: METOPROLOL SUCC *XL* 25MG TAB (TopROL *XL*) PO ×2 (09:13→20:44)
[2018-01-19] MEDS: VENLAFAXINE **XR** 75MG CAPSULE PO ×2 (09:13→20:43)
[2018-01-19] MEDS: lamoTRIgine 25 MG TAB PO ×2 (09:14→20:44)
[2018-01-19] MEDS: DOCUSATE SODIUM 100 MG CAP PO ×2 (09:14→20:45)
[2018-01-19] MEDS: BACTRIM 160MG/800MG DS TAB PO ×2 (09:14→20:43)
[2018-01-19] MEDS: PANTOPRAZOLE 40MG TAB (PROTONIX) PO (09:14)
[2018-01-19] MEDS: busPIRone 5 MG TAB PO ×3 (09:14→20:43)
[2018-01-19] MEDS: SODIUM CHLORIDE NASAL 0.65% SPRAY BTL (OCEAN) ×2 (09:15→20:45)
[2018-01-19 11:47] LABS: BEDSIDE GLUCOSE 145 MG/DL (80-115)
[2018-01-19 16:46] LABS: BEDSIDE GLUCOSE 316 MG/DL (80-115)
[2018-01-19 19:44] LABS: BEDSIDE GLUCOSE 225 MG/DL (80-115)
[2018-01-19] MEDS: AMITRIPTYLINE 25 MG TAB PO (20:43)
[2018-01-19] MEDS: SIMVASTATIN 40 MG TAB PO (20:43)
[2018-01-19] MEDS: traZODone 50 MG TAB PO (20:43)
[2018-01-19] MEDS: SENNA 8.6 MG TAB (SENOKOT) PO (20:45)
[2018-01-20 06:01] LABS: BEDSIDE GLUCOSE 177 MG/DL (80-115)
[2018-01-20] MEDS: HumaLOG INSULIN (NovoLOG) PER UNIT SC ×2 (08:38→12:12)
[2018-01-20] MEDS: busPIRone 5 MG TAB PO (08:39)
[2018-01-20] MEDS: BACTRIM 160MG/800MG DS TAB PO (08:39)
[2018-01-20] MEDS: NovoLOG MIX 70/30 PER UNIT SC ×2 (08:39→12:12)
[2018-01-20] MEDS: METOPROLOL SUCC *XL* 25MG TAB (TopROL *XL*) PO (08:40)
[2018-01-20] MEDS: PERCOCET 5MG/325MG TAB PO ×2 (08:41→13:09)
[2018-01-20] MEDS: VENLAFAXINE **XR** 75MG CAPSULE PO (08:41)
[2018-01-20] MEDS: PANTOPRAZOLE 40MG TAB (PROTONIX) PO (08:41)
[2018-01-20] MEDS: lamoTRIgine 25 MG TAB PO (08:41)
[2018-01-20] MEDS: TAMSULOSIN 0.4 MG CAP PO (08:41)
[2018-01-20] MEDS: PREGABALIN 75 MG CAP(LYRICA) PO (08:41)
[2018-01-20] MEDS: DOCUSATE SODIUM 100 MG CAP PO (08:42)
[2018-01-20] MEDS: LEVEMIR (INSULIN DETEMIR) 1 UNITS/0.01ML SC (08:42)
[2018-01-20] MEDS: ENOXAPARIN 40 MG/0.4 ML SYRINGE (J1650) SC (08:42)
[2018-01-20] MEDS: SODIUM CHLORIDE NASAL 0.65% SPRAY BTL (OCEAN) (08:42)
[2018-01-20 11:47] LABS: BEDSIDE GLUCOSE 162 MG/DL (80-115)
== END 2018-01-20 13:15 | disposition home or self-care (01) | DRG 561 ==
LOC: M PM&R 15:00
PROVIDERS: Physical Medicine & Rehabilitation
DX: S82.831D Other fracture of upper and lower end of right fibula, subsequent encounter for closed fracture with routine healing (principal); S82.301D Unspecified fracture of lower end of right tibia, subsequent encounter for closed fracture with routine healing; R26.81 Unsteadiness on feet; M54.5 Low back pain; Y92.9 Unspecified place or not applicable; E11.9 Type 2 diabetes mellitus without complications; F31.9 Bipolar disorder, unspecified; I10 Essential (primary) hypertension; Z95.810 Presence of automatic (implantable) cardiac defibrillator; Z95.5 Presence of coronary angioplasty implant and graft; Z79.4 Long term (current) use of insulin; Z79.899 Other long term (current) drug therapy; Z88.1 Allergy status to other antibiotic agents; Z91.048 Other nonmedicinal substance allergy status; I25.10 Atherosclerotic heart disease of native coronary artery without angina pectoris; Z95.1 Presence of aortocoronary bypass graft; W18.30XD Fall on same level, unspecified, subsequent encounter; L02.224 Furuncle of groin; R55 Syncope and collapse

== ENCOUNTER 2018-02-19 16:50 | Inpatient (IN) | payer MEDICARE ==
[2018-02-19 18:10] LABS: BASO # 0.1 10^3/uL (0.0-0.2); BASO % 0.3 % (0.0-1.0); EOS # 0.2 10^3/uL (0.0-0.50); EOS % 0.9 % (0.0-3.0); HEMATOCRIT 39.7 % (42.0-52.0); HEMOGLOBIN 12.9 g/dl (13.5-17.5); IMMATURE GRANULOCYTE % 0.4 % (0-3.0); LYMPH # 2.4 10^3/uL (1.5-4.5); LYMPH % 14.9 % (24.0-44.0); MEAN CORPUSCULAR HEMOGLOBIN 28.7 pg (27.0-33.0); MEAN CORPUSCULAR HGB CONC 32.5 g/dl (32.0-36.5); MEAN CORPUSCULAR VOLUME 88.2 fl (80.0-96.0); MONO # 1.4 10^3/uL (0.0-0.8); MONO % 8.4 % (0.0-5.0); NEUTROPHILS # 12.3 10^3/uL (1.8-7.7); NEUTROPHILS % 75.1 % (36.0-66.0); PLATELET COUNT, AUTOMATED 416 10^3/uL (150-450); WHITE BLOOD COUNT 16.4 10^3/uL (4.0-10.0)
[2018-02-19 18:14] LABS: INR 1.03; PARTIAL THROMBOPLASTIN TIME 25.4 SECONDS (25.4-37.6); PROTHROMBIN TIME 13.7 SECONDS (12.1-14.4)
[2018-02-19 18:18] LABS: ALBUMIN 3.4 GM/DL (3.2-5.2); ALBUMIN/GLOBULIN RATIO 0.97 (1.00-1.93); ALKALINE PHOSPHATASE 157 U/L (45-117); ALT/SGPT 29 U/L (12-78); ANION GAP 11 MEQ/L (8-16); AST/SGOT 17 U/L (7-37); BILIRUBIN,DIRECT < 0.1 MG/DL (0.0-0.2); BILIRUBIN,TOTAL 0.2 MG/DL (0.2-1.0); BLOOD UREA NITROGEN 21 MG/DL (7-18); CALCIUM LEVEL 8.6 MG/DL (8.8-10.2); CARBON DIOXIDE LEVEL 24 MEQ/L (21-32); CHLORIDE LEVEL 94 MEQ/L (98-107); CPK CREATINE PHOSPHOKINASE 121 U/L (39-308); CREATININE FOR GFR 1.86 MG/DL (0.70-1.30); GLOMERULAR FILTRATION RATE 39.6 (>49); GLUCOSE, FASTING 505 MG/DL (70-100); MB/CK RELATIVE INDEX 1.65 (< OR =4); POTASSIUM SERUM 5.3 MEQ/L (3.5-5.1); SODIUM LEVEL 129 MEQ/L (136-145); TOTAL PROTEIN 6.9 GM/DL (6.4-8.2); TROPONIN I < 0.02 NG/ML (< 0.10)
[2018-02-19] MEDS: NS 1,000 ML IV ×3 (18:18→22:40)
[2018-02-19] MEDS: HumaLOG INSULIN (NovoLOG) PER UNIT SC (18:19)
[2018-02-19 19:37] LABS: BEDSIDE GLUCOSE 376 MG/DL (80-115)
[2018-02-19] MEDS: MORPHINE 2 MG/ML 1ML SYRINGE (J2270) IV ×2 (19:42→20:09)
[2018-02-19] MEDS: PERCOCET 5MG/325MG TAB PO (21:28)
[2018-02-19] MEDS ORDERED: zolPIDEM TARTRATE 10MG TAB PO (22:15)
[2018-02-19] MEDS ORDERED: BISACODYL 10 MG SUPP PR (22:15)
[2018-02-19] MEDS ORDERED: ACETAMINOPHEN TAB 650MG DOSE (2X325MG) PO (22:15)
[2018-02-19] MEDS ORDERED: BISACODYL 5 MG TAB PO (22:15)
[2018-02-19] MEDS ORDERED: MIRALAX *UNIT DOSE* 17GM PACKET PO (22:15)
[2018-02-19] MEDS ORDERED: ONDANSETRON 4MG/2ML VIAL (J2405) IV (22:15)
[2018-02-19] MEDS ORDERED: MORPHINE 4 MG/ML 1ML VIAL/SYRINGE (J2270) IV (22:30)
[2018-02-19] MEDS ORDERED: GLUCOSE 4 GM CHEW TABLET PO (22:45)
[2018-02-19] MEDS ORDERED: DEXTROSE 50% 50 ML SYRINGE IV (22:45)
[2018-02-19] MEDS ORDERED: GLUCAGON FOR INJ 1 MG VIAL (J1610) SC (22:45)
[2018-02-20 00:28] LABS: ANION GAP 7 MEQ/L (8-16); BLOOD UREA NITROGEN 20 MG/DL (7-18); CALCIUM LEVEL 8.5 MG/DL (8.8-10.2); CARBON DIOXIDE LEVEL 26 MEQ/L (21-32); CHLORIDE LEVEL 100 MEQ/L (98-107); CPK CREATINE PHOSPHOKINASE 133 U/L (39-308); CREATININE FOR GFR 1.36 MG/DL (0.70-1.30); GLOMERULAR FILTRATION RATE 56.9 (>49); GLUCOSE, FASTING 263 MG/DL (70-100); MAGNESIUM LEVEL 1.8 MG/DL (1.8-2.4); MB/CK RELATIVE INDEX 1.43 (< OR =4); POTASSIUM SERUM 3.9 MEQ/L (3.5-5.1); SODIUM LEVEL 133 MEQ/L (136-145); TROPONIN I < 0.02 NG/ML (< 0.10)
[2018-02-20 00:33] LABS: BEDSIDE GLUCOSE 269 MG/DL (80-115)
[2018-02-20] MEDS: NS 1,000 ML IV ×2 (00:46→11:31)
[2018-02-20] MEDS: PREGABALIN 75 MG CAP(LYRICA) PO ×4 (00:52→20:54)
[2018-02-20] MEDS: SIMVASTATIN 40 MG TAB PO ×2 (00:53→20:54)
[2018-02-20] MEDS: VENLAFAXINE **XR** 75MG CAPSULE PO ×3 (00:53→20:54)
[2018-02-20] MEDS: METOPROLOL SUCC (TopROL XL) 100MG *XL* TAB PO ×3 (00:54→20:55)
[2018-02-20] MEDS: LEVEMIR (INSULIN DETEMIR) 1 UNITS/0.01ML SC ×3 (00:54→20:55)
[2018-02-20] MEDS: busPIRone 5 MG TAB PO ×4 (01:36→20:54)
[2018-02-20] MEDS: HEPARIN SOD (PORCINE) 5000 UNITS/ML VIAL SC ×3 (05:04→20:53)
[2018-02-20 06:32] LABS: HEMATOCRIT 35.8 % (42.0-52.0); HEMOGLOBIN 11.7 g/dl (13.5-17.5); MEAN CORPUSCULAR HEMOGLOBIN 27.9 pg (27.0-33.0); MEAN CORPUSCULAR HGB CONC 32.7 g/dl (32.0-36.5); MEAN CORPUSCULAR VOLUME 85.2 fl (80.0-96.0); PLATELET COUNT, AUTOMATED 346 10^3/uL (150-450); RED CELL DISTRIBUTION WIDTH 13.9 % (11.5-14.5); WHITE BLOOD COUNT 10.8 10^3/uL (4.0-10.0)
[2018-02-20 06:49] LABS: ANION GAP 7 MEQ/L (8-16); BLOOD UREA NITROGEN 16 MG/DL (7-18); CARBON DIOXIDE LEVEL 26 MEQ/L (21-32); CHLORIDE LEVEL 103 MEQ/L (98-107); CPK CREATINE PHOSPHOKINASE 136 U/L (39-308); CREATININE FOR GFR 1.16 MG/DL (0.70-1.30); GLOMERULAR FILTRATION RATE > 60.0 (>49); GLUCOSE, FASTING 256 MG/DL (70-100); MB/CK RELATIVE INDEX 1.25 (< OR =4); POTASSIUM SERUM 4.2 MEQ/L (3.5-5.1); SODIUM LEVEL 136 MEQ/L (136-145); TROPONIN I < 0.02 NG/ML (< 0.10)
[2018-02-20] MEDS ORDERED: HumaLOG INSULIN (NovoLOG) PER UNIT SC ×2 (07:30→21:00)
[2018-02-20] MEDS: HumaLOG 75/25 MIX INSULIN PER UNIT SC ×3 (07:30→17:05)
[2018-02-20] MEDS: TAMSULOSIN 0.4 MG CAP PO (08:29)
[2018-02-20] MEDS: PANTOPRAZOLE 40MG TAB (PROTONIX) PO (08:29)
[2018-02-20 11:44] LABS: BEDSIDE GLUCOSE 305 MG/DL (80-115)
[2018-02-20 14:43] LABS: CPK CREATINE PHOSPHOKINASE 112 U/L (39-308); MB/CK RELATIVE INDEX 1.25 (< OR =4); TROPONIN I < 0.02 NG/ML (< 0.10)
[2018-02-20] MEDS: PERCOCET 5MG/325MG TAB PO ×2 (16:02→20:53)
[2018-02-20 16:28] LABS: BEDSIDE GLUCOSE 221 MG/DL (80-115)
[2018-02-20 20:24] LABS: BEDSIDE GLUCOSE 228 MG/DL (80-115)
[2018-02-21 03:02] LABS: APPEARANCE, URINE CLEAR (CLEAR); BACTERIA, URINE AUTO 1+ (NEGATIVE); BILIRUBIN, URINE AUTO NEGATIVE (NEGATIVE); BLOOD, URINE BLOOD NEGATIVE (NEGATIVE); COLOR, URINE YELLOW (YELLOW); GLUCOSE, URINE (UA) AUTO 3+ mg/dL (NEGATIVE); KETONE, URINE AUTO NEGATIVE (NEGATIVE); LEUKOCYTE ESTERASE, URINE AUTO NEGATIVE (NEGATIVE); NITRITE, URINE AUTO NEGATIVE (NEGATIVE); PROTEIN, URINE AUTO NEGATIVE (NEGATIVE); RBC, URINE AUTO 2 /HPF (0-3); SPECIFIC GRAVITY URINE AUTO 1.007 (1.002-1.035); SQUAMOUS EPITHELIAL CELL UR AU 0 /HPF (0-6); WBC, URINE AUTO 0 /HPF (0-3)
[2018-02-21] MEDS: HEPARIN SOD (PORCINE) 5000 UNITS/ML VIAL SC (05:23)
[2018-02-21] MEDS: PERCOCET 5MG/325MG TAB PO (06:22)
[2018-02-21 06:32] LABS: HEMATOCRIT 36.9 % (42.0-52.0); HEMOGLOBIN 12.1 g/dl (13.5-17.5); MEAN CORPUSCULAR HEMOGLOBIN 28.2 pg (27.0-33.0); MEAN CORPUSCULAR HGB CONC 32.8 g/dl (32.0-36.5); PLATELET COUNT, AUTOMATED 370 10^3/uL (150-450); RED BLOOD COUNT 4.29 10^6/uL (4.30-6.10); RED CELL DISTRIBUTION WIDTH 13.9 % (11.5-14.5); WHITE BLOOD COUNT 8.5 10^3/uL (4.0-10.0)
[2018-02-21 06:47] LABS: ANION GAP 5 MEQ/L (8-16); BLOOD UREA NITROGEN 14 MG/DL (7-18); CALCIUM LEVEL 8.7 MG/DL (8.8-10.2); CARBON DIOXIDE LEVEL 28 MEQ/L (21-32); CHLORIDE LEVEL 104 MEQ/L (98-107); CREATININE FOR GFR 1.07 MG/DL (0.70-1.30); GLOMERULAR FILTRATION RATE > 60.0 (>49); GLUCOSE, FASTING 130 MG/DL (70-100); POTASSIUM SERUM 4.1 MEQ/L (3.5-5.1); SODIUM LEVEL 137 MEQ/L (136-145)
[2018-02-21] MEDS: HumaLOG 75/25 MIX INSULIN PER UNIT SC ×2 (07:30→12:00)
[2018-02-21] MEDS: LEVEMIR (INSULIN DETEMIR) 1 UNITS/0.01ML SC (09:00)
[2018-02-21] MEDS: METOPROLOL SUCC (TopROL XL) 100MG *XL* TAB PO (09:00)
[2018-02-21] MEDS: TAMSULOSIN 0.4 MG CAP PO (09:00)
[2018-02-21] MEDS: VENLAFAXINE **XR** 75MG CAPSULE PO (09:00)
[2018-02-21] MEDS: PREGABALIN 75 MG CAP(LYRICA) PO (09:00)
[2018-02-21] MEDS: PANTOPRAZOLE 40MG TAB (PROTONIX) PO (09:00)
[2018-02-21] MEDS: busPIRone 5 MG TAB PO (09:00)
[2018-02-21 11:44] LABS: BEDSIDE GLUCOSE 214 MG/DL (80-115)
[2018-02-24 15:30] LABS: BEDSIDE GLUCOSE 568 MG/DL (80-115)
== END 2018-02-21 13:09 | disposition short-term general hospital (02) | DRG 560 ==
LOC: M MSPAV 02-20 00:18 → M ED 16:50 → M ED INP 22:11
PROVIDERS: Internal Medicine
DX: T84.126A Displacement of internal fixation device of bone of right lower leg, initial encounter (principal); E87.1 Hypo-osmolality and hyponatremia; N17.9 Acute kidney failure, unspecified; M96.671 Fracture of tibia or fibula following insertion of orthopedic implant, joint prosthesis, or bone plate, right leg; K21.9 Gastro-esophageal reflux disease without esophagitis; I25.10 Atherosclerotic heart disease of native coronary artery without angina pectoris; Z95.2 Presence of prosthetic heart valve; N40.0 Benign prostatic hyperplasia without lower urinary tract symptoms; M54.5 Low back pain; F31.9 Bipolar disorder, unspecified; E11.40 Type 2 diabetes mellitus with diabetic neuropathy, unspecified; E11.65 Type 2 diabetes mellitus with hyperglycemia; R55 Syncope and collapse; W18.30XA Fall on same level, unspecified, initial encounter; Y83.1 Surgical operation with implant of artificial internal device as the cause of abnormal reaction of the patient, or of later complication, without mention of misadventure at the time of the procedure; D72.829 Elevated white blood cell count, unspecified; Z79.4 Long term (current) use of insulin; Z79.899 Other long term (current) drug therapy; Z88.8 Allergy status to other drugs, medicaments and biological substances; Z95.1 Presence of aortocoronary bypass graft; Z95.4 Presence of other heart-valve replacement

== ENCOUNTER 2018-04-10 05:45 | Inpatient (IN) | payer MEDICARE ==
[~2018-04-10] VITALS: Ht 188 cm; Wt 107.0 kg
[2018-04-10] VITALS (19 sets, daily range): BP systolic 103–165; BP diastolic 56–97; O2SAT 100
[~2018-04-10 05:45] MED LIST changes: -AMBI10TA; +AMBI10TA PO; +AMIT10TA PO; +AMIT25TA PO; +ASPI1TAB PO; +BISA10SU PR; +BISA10SU4 PR; +BISAC5TA PO; -BLOOKIT20 XX; +BLOOKIT21 XX; +BUSP15TA47 PO; +DOCU100T8 PO; +EFFE75CA2 PO; -EFFE75CA75 PO; +FLOM0.4C39 PO; +HUMA100I3 SC; +HUMA75VL SC; +LAMI25TA PO; +LAMO10TA PO; +LISI20TA PO; +LOVE1INJ SC; +LYRI150C PO; +METO1TAB33 PO; +MIRA3350 PO; +NOVO70VL SC; +OXYC1TAB23 PO; -PANT40TA2 PO; +PANT40TA3 PO; +PERCOCET PO; +SULF1TAB93 PO; +TIOT18INH INH; -TOPR100T PO; +TOPR100T13 PO; +TOPR25TA13 PO; +TRAM50TA2 PO; +ZOCO40TA PO
[2018-04-10] MEDS ORDERED: ONDANSETRON 4MG/2ML VIAL (J2405) As Ordered ONE (05:50)
[2018-04-10] MEDS ORDERED: ONDANSETRON 4MG/2ML VIAL (J2405) IV ONE (06:00)
[2018-04-10 06:24] LABS: HEMATOCRIT 39.6 % (42.0-52.0); HEMOGLOBIN 12.7 g/dl (13.5-17.5); MEAN CORPUSCULAR HEMOGLOBIN 27.5 pg (27.0-33.0); MEAN CORPUSCULAR HGB CONC 32.1 g/dl (32.0-36.5); MEAN CORPUSCULAR VOLUME 85.7 fl (80.0-96.0); PLATELET COUNT, AUTOMATED 517 10^3/uL (150-450); RED BLOOD COUNT 4.62 10^6/uL (4.30-6.10)
[2018-04-10 06:25] LABS: WHITE BLOOD COUNT 19.4 10^3/uL (4.0-10.0)
--- NOTE | 2018-04-10 06:27 | REPVR ---
EXAM: CT Head Without Contrast EXAM DATE/TIME: 04/10/2018 5:49 AM CLINICAL HISTORY: 62 years old, male; Signs and symptoms; Coma or unconsciousness; Additional info: CVA TECHNIQUE: Axial computed tomography images of the head/brain without contrast. All CT scans at this facility use at least one of these dose optimization techniques: automated exposure control; mA and/or kV adjustment per patient size (includes targeted exams where dose is matched to clinical indication); or iterative reconstruction. COMPARISON: CT Head without contrast 12/24/2014 12:23 PM FINDINGS: There are no intra-or extra-axial hemorrhages or fluid collections. There is no mass effect or midline shift. Ventricles are symmetrical and nondilated for age. Probable small old lacunar infarction in the left centrum semiovale. There are no other focal parenchymal abnormalities. Atherosclerotic changes within intracranial arteries. No calvarial fractures. IMPRESSION: No acute intracranial process. No intracranial hemorrhage. Additional nonemergent findings as described above. Electronically signed by: Arvind Mayers On 04/10/2018 06:27:12 AM
[2018-04-10] MEDS ORDERED: SUCCINYLCHOLINE INJ 200 MG/10 ML VIAL (J0330) IV ONE (06:30)
[2018-04-10] MEDS: PROPOFOL 1,000 MG in APPROPRIATE DILUENT 1 EA IV SCH ×5 (06:30→10:34)
[2018-04-10] MEDS ORDERED: ETOMIDATE INJ 20MG/10ML VIAL IV ONE (06:30)
[2018-04-10] MEDS ORDERED: LIDOCAINE 2% INJ 100 MG/5 ML SYRINGE IV ONE (06:30)
[2018-04-10 06:31] LABS: INR 1.01; PROTHROMBIN TIME 13.4 SECONDS (12.1-14.4)
[2018-04-10 06:32] LABS: PARTIAL THROMBOPLASTIN TIME 22.7 SECONDS (25.4-37.6)
[2018-04-10 06:53] LABS: BLOOD UREA NITROGEN 25 MG/DL (7-18); CALCIUM LEVEL 9.2 MG/DL (8.8-10.2); CARBON DIOXIDE LEVEL 20 MEQ/L (21-32); CHLORIDE LEVEL 101 MEQ/L (98-107); CPK CREATINE PHOSPHOKINASE 87 U/L (39-308); CREATININE FOR GFR 1.68 MG/DL (0.70-1.30); GLOMERULAR FILTRATION RATE 44.6 (>49); GLUCOSE, FASTING 278 MG/DL (70-100); POTASSIUM SERUM 4.1 MEQ/L (3.5-5.1); SODIUM LEVEL 133 MEQ/L (136-145); TROPONIN I < 0.02 NG/ML (< 0.10)
[2018-04-10 06:59] LABS: ATYPICAL LYMPH 3 % (0-5); EOSINOPHILS 1 % (0-5); LYMPHOCYTES 30 % (16-52); MONOCYTES 8 % (0-8); NEUTROPHILS 58 % (35-75); PLATELET ESTIMATE INCREASED (NORMAL)
[2018-04-10] MEDS ORDERED: INSUHUMDS SC (07:18)
[2018-04-10] MEDS ORDERED: METO1TAB87 PO (07:18)
[2018-04-10] MEDS ORDERED: VENL75CA2 PO (07:18)
[2018-04-10] MEDS ORDERED: APAP325T4 PO (07:18)
[2018-04-10] MEDS ORDERED: NS 1,000 ML IV SCH (07:20)
[2018-04-10 07:24] LABS: ABG BASE EXCESS -2.7 (-2.0-2.0); ABG HCO3 22.7 MEQ/L (22.0-26.0); ABG O2 SATURATION 55.6 % (95.0-99.0); ABG PARTIAL PRESSURE CO2 41.6 mmHg (35.0-45.0); ABG STANDARD HCO3 21.4 MEQ/L (22.0-26.0); ABG pH (ARTERIAL) 7.355 UNITS (7.350-7.450)
[2018-04-10 07:25] LABS: ABG PARTIAL PRESSURE O2 33.6 mmHg (75.0-100.0)
[2018-04-10 07:28] LABS: NT-PRO BNP 24 PG/ML (<125)
[2018-04-10] MEDS ORDERED: LAMI25TA PO (08:10)
[2018-04-10] MEDS ORDERED: LANTINJ4 SC (08:12)
[2018-04-10] MEDS ORDERED: LISI20TA PO (08:12)
--- NOTE | 2018-04-10 08:20 | REP ---
Portable chest x-ray: Single view. History: CVA. Comparison study: February 19, 2018. Findings: Endotracheal tube is seen in good position at the level of proximal clavicles. There appears to be a nasogastric tube in place. It is poorly seen but believed to be entering the left upper quadrant of the abdomen. A unipolar pacemaker is seen in the right heart via the left side. The lungs are exposed at a low level of inspiration but no infiltrate is seen. Electronically Signed by Almas Chou MD 04/10/2018 08:11 A
[2018-04-10] MEDS ORDERED: VANCOMYCIN HCL 1,000 MG, VIAL MATE ADAPTER 1 EACH in D5W 250 ML IV ONE (08:30)
[2018-04-10] MEDS: NS 1,000 ML IV SCH ×3 (08:55→22:33)
[2018-04-10] MEDS: CHLORHEXIDINE GLUCONATE 0.12 % 15ML UDC (PERIDEX ORAL RINSE) MT SCH ×2 (09:00→20:22)
[2018-04-10] MEDS ORDERED: MORPHINE 4 MG/ML 1ML VIAL/SYRINGE (J2270) IV PRN (09:00)
[2018-04-10] MEDS: PANTOPRAZOLE 40MG INJ (PROTONIX) (C9113) IV SCH (09:29)
[2018-04-10 09:37] LABS: AMPHETAMINES LEVEL URINE NEGATIVE (NEGATIVE); BARBITURATES URINE NEGATIVE (NEGATIVE); BENZODIAZEPINES URINE NEGATIVE (NEGATIVE); CANNABINOIDS URINE POSITIVE (NEGATIVE); COCAINE METABOLITE URINE NEGATIVE (NEGATIVE); METHADONE URINE NEGATIVE (NEGATIVE); OPIATES URINE NEGATIVE (NEGATIVE); PHENCYCLIDINE URINE NEGATIVE (NEGATIVE)
[2018-04-10] MEDS: cefTRIAXone SOD 2 GM in D5W MINI-BAG PLUS 50 ML IV SCH ×2 (10:16→22:27)
[2018-04-10] MEDS: dexameTHASONE 20 MG/5 ML VIAL (J1100) IV SCH ×3 (10:16→22:28)
[2018-04-10] MEDS ORDERED: PROPOFOL 200 MG/20 ML VIAL ONE (10:27)
[2018-04-10] MEDS ORDERED: SUCCINYLCHOLINE 100 MG/5 ML SYRINGE (J0330) ONE (10:27)
[2018-04-10] MEDS ORDERED: LIDOCAINE 2% INJ 100 MG/5 ML SYRINGE ONE (10:27)
[2018-04-10] MEDS ORDERED: ETOMIDATE INJ 20MG/10ML VIAL ONE (10:27)
--- NOTE | 2018-04-10 10:33 | HPE ---
DATE OF ADMISSION: 04/10/2018 CHIEF COMPLAINT: The patient is unresponsive and in respiratory failure. HISTORY OF PRESENT ILLNESS Mr. Kahn is a 62-year-old male who presented to the to the emergency department by ambulance. He was unresponsive and therefore the history was obtained from his and from the emergency room. According to the patient's , he went to bed around 11:30 last night but expressed to her the was not feeling very well. He described this as feeling somewhat dizzy. He went to sleep and his stated that he normally gets up three or four times a night to use the bathroom; however, he did not get up at all during the night. She states that this morning around 5 o'clock he was very restless in bed and when she addressed him he had kind of garbled speech. She told them that she was calling the ambulance and he initially said no but then stopped protesting and when the ambulance arrived he reportedly became unresponsive. Upon arrival to the emergency room, he apparently was bluish in color. He was intubated. The patient's states that he had not been having any other acute illnesses or complaining of any other issues. She states he has not been having fever or chills. She states he has not been complaining of chest pain or difficulty breathing. She states that he had not complained of abdominal pain, nausea or vomiting. He apparently did have some vomitus is mouth when he arrived in the ER. states that this has not happened in the past; however, he apparently does have a history of syncopal episodes that have been worked up by neurology without any conclusive diagnosis. The patient does have an extensive cardiac history and according to his has had multiple myocardial infarctions, as well as rales 13 stents placed in the past. He had followed with cardiology in the past. His believed that he followed with Dr. Boston. He does have an ICD; however, he has not been back to cardiology in about 2 years. He also has a history of diabetes mellitus type 2 and is insulin dependent. He is on Levemir 70 units in the morning and 75 units in the evening. He does take Humulin insulin 20 units twice a day. According to his , he does not check fingerstick blood sugars. He has been hospitalized in the past and has had uncontrolled blood sugars that were addressed in previous hospitalizations. The patient is also a smoker. He is currently smoking about a pack a day, but is states that in the past he has smoked as much as two packs a day. She states that he has been smoking for over 40 years. He does occasionally smoke marijuana. He does not drink alcohol. His initial electrocardiogram (EKG) in the emergency room did show some atrial fibrillation. Repeat EKG about an hour later showed sinus tachycardia. His states she did not see that there was any indication that his ICD had fired as far she could tell. The patient's initial cardiac enzymes in the ER were within normal limits. White count was elevated at 19.4. As noted, the patient's stated that he had not been demonstrating any fevers or chills at home. Pulmonary critical care team was called to admit the patient. He will be admitted on ventilator to intensive care unit (ICU). PAST MEDICAL HISTORY: 1. Coronary artery disease with history of myocardial infarctions and history of stents totaling possibly 13. The patient also has ICD. 2. History of syncopal episodes. 3. Possible history of transient ischemic attack. 4. Hypertension. 5. Diabetes mellitus type 2. 6. Gastroesophageal reflux disease (GERD). 7. Benign prostatic hypertrophy (BPH). 8. History of abdominal hernia repair. 9. History of bowel resection. 10. History of right tib-fib fracture times two. 11. Antisocial disorder / question bipolar. The patient follows with transitional living. 12. Diabetic neuropathy. 13. Tobacco use. SOCIAL HISTORY: The patient lives with his . He smokes a pack a day. He has been smoking one to two packs a day for over 40 years. He occasionally uses marijuana. He does not drink alcohol. ALLERGIES: CLARITHROMYCIN and TAPE. MEDICATIONS: - pantoprazole 40 mg daily - Ambien 10 mg at night - Flomax 0.4 mg daily - BuSpar 50 mg three times a day - simvastatin 40 mg at night - Levemir 70 units subcutaneously at 09:00 a.m. and 75 units subcutaneously at bedtime - Humulin insulin 20 units subcutaneously twice a day - metoprolol tartrate 25 mg by mouth twice a day - acetaminophen 325 mg every 6 hours as needed for pain - venlafaxine ER 75 mg daily FAMILY MEDICAL HISTORY: Noncontributory. REVIEW OF SYSTEMS: I was unable to elicit review of systems from the patient. The information from review of systems was obtained from the patient's . GENERAL: She denies the patient having had any recent fevers, chills, or unexplained weight loss. HEENT: Denies any new-onset vision issues. Denies nosebleeds or sore throats. CARDIAC: The patient has an extensive cardiac history with coronary artery disease and an ICD. The patient's states that the patient has not complained of any chest pain or recent cardiac issues. PULMONARY: The patient is a smoker but the patient's denies him having complained of shortness of breath or cough. GASTROINTESTINAL: The patient's denies the patient having complained of recent nausea, vomiting, diarrhea, change in bowel habits. GENITOURINARY: The patient does have a history of BPH and does have urinary frequency, particularly at night. She denies the patient having had any recent urinary tract infections or dysuria. NEUROLOGIC: Patient does have a history of syncopal episodes. The patient's is unclear when the last one was. He had followed with neurology and was placed on Lyrica for diabetic neuropathy for a period of time but is no longer taking that. MUSCULOSKELETAL: The patient had recent right lower extremity orthopedic surgery as a result of fracture of the tib-fib. He has been undergoing therapy and has just started walking again without the use of a cane. The patient's denies the patient having complained of calf pain or swelling. PHYSICAL EXAMINATION Vitals: Temperature is 100.9. Pulse 102, respiratory rate 16, blood pressure 115/58, pulse ox 100% on ventilator, FiO2 is 40. GENERAL: The patient is intubated on mechanical ventilation. He is unresponsive. HEENT: Head is normocephalic, atraumatic. The patient's pupils are unresponsive to light. No corneal reflex. No ocular cephalic reflex. Moist mucous membranes. Neck is supple. No jugular venous distention (JVD). No cervical lymphadenopathy. Trachea is midline. CARDIAC: Sinus tachycardia. No murmurs, rubs or gallops. PULMONARY: Clear to auscultation bilaterally. No wheezes, rales, rhonchi or crackles. No accessory muscle use. ABDOMEN: Positive bowel sounds, soft, nontender, nondistended. No rebound or guarding. No obvious hepatosplenomegaly. EXTREMITIES: No calf tenderness. No clubbing, cyanosis or edema. SKIN: Warm and dry. NEUROLOGIC: Exam was performed with patient on Propofol. As noted, no ocular cephalic reflex. No corneal reflex. No clonus obtained. Reflexes were very hyporeflexive. CHEST X-RAY: Shows endotracheal tube in good position. Nasogastric tube in place. The patient has AICD in the right heart. No infiltrates or atelectasis is appreciated. LABORATORY DATA: WBC 19.4, hemoglobin 12.7, hematocrit 39.6, platelets 517. Sodium 133, potassium 4.1, chloride 101, carbon dioxide 20, BUN 25, creatinine 1.68, glucose 278, calcium 9.2, CK 87, CK-MB 2.0, CK-MB relative index 2.30. Troponin I is less than 0.02. BNP 24. ABG pH is 7.355, pCO2 is 41.6, pO2 is 33.6, HCO3 is 22.7. PT is 13.4, INR is 1.01, PTT is 22.7. ASSESSMENT AND PLAN: 1. Acute respiratory failure. This at the etiology is unclear appears to be neurologic versus infectious. The patient is on a ventilator. The patient will be admitted to ICU and continued on mechanical ventilation. 2. Altered mental status / encephalopathy. As noted, the patient's respiratory failure may be neurological, also may be infectious. Plan is to order lumbar puncture as he does have a white count of 19.4 and he is febrile at 100.9. We will also obtain a urine toxicology. The patient does have an extensive cardiac history and therefore we contacted Dr. Boston to interrogate his ICD. Dr. Boston was able to interrogate the ICD and noted there were no arrhythmias. The patient did have a few beats nonsustained VT on 03/04/2018 but has had no other issues since. If the patient's altered mental status and encephalopathic issues continue, then would obtain a CT angio of the brain tomorrow. The patient is placed on Decadron. 3. Leukocytosis / fevers / lactic acidosis. Certainly the lactic acidosis could be hypoxia versus sepsis. With a concern for possible sepsis however, and in light of the elevated white count and fever, the patient will be sent for a lumbar puncture. Additionally, we will cover the patient with vancomycin and ceftriaxone. Certainly, this could be infectious etiology based on the white count and the fever and the altered mental status. Blood cultures have been drawn as well. The patient will be placed on droplet precaution in concern of meningitis while we await the results of the lumbar puncture. 4. Coronary artery disease. We will obtain echocardiogram. Additionally, as noted above, Dr. Boston interpreted the ICD and noted no recent arrhythmias. The only abnormality was a few beats of unsustained V-tach on March 04, 2018. Current cardiac enzymes were negative. Plan is for serial cardiac enzymes. 5. Diabetes mellitus type 2 / hyperglycemia. The patient is placed on an insulin drip. 6. Renal impairment. The patient is given fluids. Nephrotoxic agents should be avoided. 7. Tobacco use. 8. Gastroesophageal reflux disease. The patient is placed on IV Protonix. DISPOSITION: Dr. Blanco spoke to the patient's who stated that if he was to lose a pulse then they would not want to push forward with resuscitation efforts. She affirms the patient's prehospitalization wishes of DO NOT RESUSCITATE. Total Critical Care Time excluding all procedures was 1 hour 3 minutes. YESSI
[2018-04-10] MEDS ORDERED: REFRIGERATOR IV KEYS XX PRN (11:15)
[2018-04-10] MEDS: AMPICILLIN SOD 2 GM in D5W MINI-BAG PLUS 100 ML IV SCH ×4 (11:15→23:18)
[2018-04-10] MEDS: MIDAZOLAM HCL 100 MG in D5W 80 ML IV SCH ×2 (11:37→12:33)
[2018-04-10] MEDS ORDERED: COMBIVENT RESPIMAT 100-20MCG INHALER 4GM INH SCH (12:00)
[2018-04-10] MEDS: IPRATROPIUM 0.5MG/ALBUTEROL 2.5MG INH SOL UD 3ML (DUONEB)(J7620) NEB SCH ×3 (12:00→21:18)
[2018-04-10] MEDS ORDERED: AMPICILLIN SOD/SULBACTAM SOD 2 GM in D5W MINI-BAG PLUS 50 ML IV SCH (12:00)
[2018-04-10 13:44] LABS: ABG BASE EXCESS -3.9 (-2.0-2.0); ABG HCO3 19.4 MEQ/L (22.0-26.0); ABG O2 SATURATION 98.7 % (95.0-99.0); ABG PARTIAL PRESSURE CO2 30.4 mmHg (35.0-45.0); ABG PARTIAL PRESSURE O2 125.6 mmHg (75.0-100.0); ABG STANDARD HCO3 21.2 MEQ/L (22.0-26.0); ABG TOTAL CO2 20.3 MEQ/L (23.0-31.0); ABG pH (ARTERIAL) 7.422 UNITS (7.350-7.450)
[2018-04-10] MEDS ORDERED: MIDAZOLAM INJ 2 MG/2 ML VIAL (J2250) IV ONE (15:00)
[2018-04-10] MEDS ORDERED: MIDAZOLAM INJ 2 MG/2 ML VIAL (J2250) As Ordered ONE (15:00)
[2018-04-10 15:48] LABS: CSF TUBE# GLU TUBE 2; CSF TUBE# TP TUBE 2; GLUCOSE CSF 127 MG/DL (40-75); TOTAL PROTEIN,CSF 71 MG/DL (15-45)
[2018-04-10 15:55] LABS: APPEARANCE, CSF CLEAR (CLEAR); COLOR, CSF COLORLESS (COLORLESS); CSF TUBE# CELL CNT TUBE 1; CSF TUBE# CELL CNT TUBE 4
[2018-04-10] MEDS: INSULIN HUMAN REGULAR 100 UNITS in NS 99 ML IV SCH ×2 (16:31→16:32)
[2018-04-10 16:46] LABS: ALBUMIN 3.4 GM/DL (3.2-5.2); ALT/SGPT 37 U/L (12-78); BILIRUBIN,TOTAL 0.2 MG/DL (0.2-1.0); BLOOD UREA NITROGEN 23 MG/DL (7-18); CALCIUM LEVEL 8.8 MG/DL (8.8-10.2); CARBON DIOXIDE LEVEL 21 MEQ/L (21-32); CHLORIDE LEVEL 102 MEQ/L (98-107); CPK CREATINE PHOSPHOKINASE 5035 U/L (39-308); CREATININE FOR GFR 1.74 MG/DL (0.70-1.30); GLOMERULAR FILTRATION RATE 42.8 (>49); GLUCOSE, FASTING 289 MG/DL (70-100); MB/CK RELATIVE INDEX 0.17 (< OR =4); POTASSIUM SERUM 4.6 MEQ/L (3.5-5.1); SODIUM LEVEL 133 MEQ/L (136-145); TOTAL PROTEIN 7.4 GM/DL (6.4-8.2); TROPONIN I < 0.02 NG/ML (< 0.10)
[2018-04-10] MEDS: INSULIN IV RATE CHANGE DOCUMENTATION ML/HR XX SCH ×4 (19:26→23:16)
[2018-04-10] MEDS: fentaNYL 100 MCG/2 ML INJECTION (J3010) IV PRN ×2 (20:22→22:28)
[2018-04-10] MEDS: ACETAMINOPHEN 325 MG/10.15 ML UDC GT PRN (20:22)
[2018-04-11] VITALS (72 sets, daily range): BP systolic 66–184; BP diastolic 43–109; O2SAT 100
[2018-04-11] MEDS: fentaNYL 100 MCG/2 ML INJECTION (J3010) IV PRN ×2 (00:37→04:18)
[2018-04-11 00:43] LABS: MB/CK RELATIVE INDEX 0.09 (< OR =4); TROPONIN I 0.03 NG/ML (< 0.10)
[2018-04-11] MEDS: INSULIN IV RATE CHANGE DOCUMENTATION ML/HR XX SCH ×4 (01:06→08:09)
[2018-04-11] MEDS: AMPICILLIN SOD 2 GM in D5W MINI-BAG PLUS 100 ML IV SCH ×2 (03:15→06:27)
[2018-04-11] MEDS: dexameTHASONE 20 MG/5 ML VIAL (J1100) IV SCH ×2 (03:15→09:49)
[2018-04-11 05:41] LABS: HEMATOCRIT 41.8 % (42.0-52.0); HEMOGLOBIN 13.5 g/dl (13.5-17.5); MEAN CORPUSCULAR HEMOGLOBIN 27.2 pg (27.0-33.0); MEAN CORPUSCULAR HGB CONC 32.3 g/dl (32.0-36.5); MEAN CORPUSCULAR VOLUME 84.3 fl (80.0-96.0); RED BLOOD COUNT 4.96 10^6/uL (4.30-6.10); WHITE BLOOD COUNT 19.1 10^3/uL (4.0-10.0)
[2018-04-11 05:46] LABS: PLATELET COUNT, AUTOMATED 284 10^3/uL (150-450)
[2018-04-11 06:15] LABS: ABG BASE EXCESS -2.4 (-2.0-2.0); ABG HCO3 20.6 MEQ/L (22.0-26.0); ABG O2 SATURATION 98.7 % (95.0-99.0); ABG PARTIAL PRESSURE CO2 30.7 mmHg (35.0-45.0); ABG PARTIAL PRESSURE O2 133.1 mmHg (75.0-100.0); ABG STANDARD HCO3 22.5 MEQ/L (22.0-26.0); ABG TOTAL CO2 21.6 MEQ/L (23.0-31.0); ABG pH (ARTERIAL) 7.445 UNITS (7.350-7.450)
[2018-04-11] MEDS: INSULIN HUMAN REGULAR 100 UNITS in NS 99 ML IV SCH (06:35)
[2018-04-11 06:47] LABS: ALBUMIN 3.3 GM/DL (3.2-5.2); CALCIUM LEVEL 8.8 MG/DL (8.8-10.2); CREATININE FOR GFR 1.46 MG/DL (0.70-1.30); GLOMERULAR FILTRATION RATE 52.4 (>49); MB/CK RELATIVE INDEX 0.1 (< OR =4); PHOSPHORUS LEVEL 3.3 MG/DL (2.5-4.9); TROPONIN I 0.03 NG/ML (< 0.10)
[2018-04-11] MEDS: IPRATROPIUM 0.5MG/ALBUTEROL 2.5MG INH SOL UD 3ML (DUONEB)(J7620) NEB SCH ×4 (07:13→19:53)
--- NOTE | 2018-04-11 08:48 | REP ---
Portable chest x-ray: Single view. History: Respiratory failure. Comparison study: April 10, 2018. Findings: Endotracheal tube is seen in good position just above the transverse aorta. A pacemaker is again noted in the right heart via the left side. A nasogastric tube enters the left upper quadrant of the abdomen. The lungs are well inflated and clear. The pleural angles are sharp. Heart is not enlarged. Pulmonary vasculature is not increased. Impression: No acute disease. Endotracheal and nasogastric tubes in good position. Electronically Signed by Almas Chou MD 04/11/2018 08:40 A
[2018-04-11] MEDS ORDERED: NICOTINE 21MG/24HR 1 EA TRANSDERMAL TD SCH (09:00)
[2018-04-11] MEDS: CHLORHEXIDINE GLUCONATE 0.12 % 15ML UDC (PERIDEX ORAL RINSE) MT SCH ×2 (09:49→22:48)
[2018-04-11] MEDS: PANTOPRAZOLE 40MG INJ (PROTONIX) (C9113) IV SCH (09:49)
[2018-04-11] MEDS: cefTRIAXone SOD 2 GM in D5W MINI-BAG PLUS 50 ML IV SCH (09:49)
[2018-04-11] MEDS: HEPARIN SOD (PORCINE) 5000 UNITS/ML VIAL SQ SCH ×3 (09:50→22:48)
[2018-04-11] MEDS: ACETAMINOPHEN 325 MG/10.15 ML UDC GT PRN (10:00)
[2018-04-11] MEDS ORDERED: MIDAZOLAM INJ 2 MG/2 ML VIAL (J2250) IV PRN (10:30)
--- NOTE | 2018-04-11 11:13 | REP ---
Right tib-fib series: Four views. History: Sepsis. Findings: Portably obtained four view right tib-fib series demonstrates intramedullary mina fixation of comminuted healing distal tibial fracture. There is a distal fibular fracture as well which also shows evidence of healing. There is no change in position from February 19, 2018. Healing periosteal reaction is observed. No acute bony destructive lesion is seen. No soft tissue gas is noted. Electronically Signed by Almas Chou MD 04/11/2018 11:05 A
--- NOTE | 2018-04-11 11:15 | REP ---
Right knee series: Portable exam two views. History: Sepsis. Comparison study: April 11, 2018. Findings: Metallic screw fixation of the proximal end of a intramedullary tibial fixation mina is seen. There is healing fracture of the proximal tibia with some periosteal reaction. There is diffuse osteopenia. No soft tissue gas is seen. No acute bony erosive change. Electronically Signed by Almas Chou MD 04/11/2018 11:06 A
--- NOTE | 2018-04-11 11:16 | PHACANCOPD ---
PHARMACY VANCOMYCIN DOSING Pt Demographics Demographics Patient Age:62 , Weight:109.400 , Gender: male Adjusted Body Weight Date: 04/11/18, Adjusted Body Weight: Kg Events Past 24 Hours Events Past 24 Hours: YES: Elevation in WBC, Pending Diagnostics Vancomycin Vancomycin indication: SEPSIS Vancomycin Target Ranges: 15-20 mcg/ml Vancomycin Load Y/N: Yes Load Dose Date Time Vancomycin Load Dose: 2g Date: 04/11/18 Time: 1200 Vancomycin Dose Date: 04/11/18. Current Vancomycin Dose: [1g IV Q12H] Intermittent Dosing?: No Labs Labs Item Value Date Time White Blood Count 19.4 10^3/uL H 04/10/18 0611 White Blood Count 19.1 10^3/uL H 04/11/18 0533 Creatinine 1.74 MG/DL H 04/10/18 1550 Creatinine 1.46 MG/DL H 04/11/18 0533 Blood Urea Nitrogen 23 MG/DL H 04/10/18 1550 Blood Urea Nitrogen 26 MG/DL H 04/11/18 0533 Lactic Acid Level 6.1 MMOL/L *H 04/10/18 0611 Lactic Acid Followup at 4 Hours 2.0 MMOL/L 04/10/18 1113 Micro Microbiology 04/10/18 Blood Culture - Preliminary, Resulted No growth after 24 hours . All specim... 04/10/18 Blood Culture - Preliminary, Resulted No growth after 24 hours . All specim... 04/10/18 Gram Stain - Final, Resulted 04/10/18 CSF Culture, Resulted Pending 04/10/18 - Final, Complete 04/10/18 Urine Culture, Received Pending Creatinine Clearance Date:04/11/18. Est Creatinine Clearance: [~59ml/min]. Assessment and Plan Maintaining Current Dose?: Yes Reason for dose change: No Dose Change Pharmacist Note Pharmacist Note Date: 04/11/18. Pharmacist note: Day #1 vancomycin therapy initiated with a 2g loading dose, followed by a maintenance regimen of 1g IV Q12H for the treatment of sepsis - aiming for a goal trough of 15-20mcg/ml. The patient presents with acute respiratory failure requiring ventilation as well as altered mental status. He is s/p 2 days of IV ampicillin and IV rocephin, now switched to IV vanco and zosyn. It is noted that the patient did receive 1g of vancomycin yesterday (04/10/18) @0900. WBC and LA are elevated, and the patient is febrile. The patient does have a PMH of MRSA in 2003 as well as vanco use here at [facility] in 2012. Urine culture, blood cultures, and cerebral spinal fluid cultures are pending. Scr is at 1.46 today from 1.74 on admit. Patient's scr appears to fluctuate quite a bit so we will continue to monitor and schedule a trough level accordingly. [facility] Apr 11, 2018 11:16
[2018-04-11] MEDS: PIPERACILLIN/TAZOBACTAM SOD 3.375 GM in D5W MINI-BAG PLUS 50 ML IV SCH ×3 (11:52→22:49)
[2018-04-11] MEDS: PROPOFOL 1,000 MG in APPROPRIATE DILUENT 1 EA IV SCH (11:56)
--- NOTE | 2018-04-11 12:05 | REP ---
CT ABDOMEN PELVIS WITHOUT IV OR ORAL CONTRAST: HISTORY: Sepsis. No comparison abdomen CT study. 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 Patient is rotated somewhat to the right. The lung bases are clear on axial CT images. The liver is normal in size and homogeneous. There is mild fatty infiltration of the liver with areas of fat sparing near the gallbladder. No abnormality is seen in the gallbladder. The spleen is normal in size and homogeneous in texture. Nasogastric tube is seen terminating in the gastric body. No adrenal lesion is observed. The pancreas is unremarkable. The kidneys are morphologically intact. There is vascular calcification noted. Small and large intestinal bowel loops are unremarkable in the abdomen and pelvis. A Mclain catheter is seen in an otherwise empty urinary bladder. There is a tiny amount of bladder air. There are prostate calcifications noted. Seminal vesicles are normal in appearance. A left colon resection and reanastomosis has been performed in the anastomotic region is unremarkable. There is some left colonic diverticulosis without CT evidence of diverticulitis. No evidence of obstruction, free air, or abscess. Bone window settings show degenerative changes in the lumbar spine. IMPRESSION: Vascular calcification. Prior colon resection and reanastomosis. Left colonic diverticulosis. NG tube in place. Mclain catheter in the urinary bladder. No acute abdominal or pelvic abnormality. Electronically Signed by Almas Chou MD 04/11/2018 12:14 P
[2018-04-11] MEDS: VANCOMYCIN HCL 1,000 MG, VIAL MATE ADAPTER 1 EACH in D5W 250 ML IV SCH (12:24)
[2018-04-11 12:36] LABS: ALBUMIN 3.3 GM/DL (3.2-5.2); ALT/SGPT 44 U/L (12-78); BILIRUBIN,DIRECT < 0.1 MG/DL (0.0-0.2); BILIRUBIN,TOTAL 0.2 MG/DL (0.2-1.0); C REACTIVE PROTEIN QUANTITATIV 3.76 MG/DL (0.00-0.30)
[2018-04-11] MEDS ORDERED: GLUCAGON FOR INJ 1 MG VIAL (J1610) SC PRN (13:00)
[2018-04-11] MEDS ORDERED: GLUCOSE 4 GM CHEW TABLET PO PRN (13:00)
[2018-04-11] MEDS ORDERED: DEXTROSE 50% 50 ML SYRINGE IV PRN (13:00)
[2018-04-11] MEDS ORDERED: VANCOMYCIN HCL 1,000 MG, VIAL MATE ADAPTER 1 EACH in D5W 250 ML IV ONE (13:00)
--- NOTE | 2018-04-11 13:43 | CCN ---
CRITICAL CARE PROGRESS NOTE DATE: 04/11/2018 Patient was seen and examined this morning during bedside rounds. Overnight patient was febrile with a maximum temperature (t-max) of 104.4, was given Tylenol and cooling blanket with improvement in temperature and defervesced to 98.6 earlier this morning. Patient was also noted to be tachypneic over night and desynchronized with the ventilator. Was given Fentanyl as needed and increased on his Versed drip to 4 mg per hour with some improvement. This morning patient had a sedation vacation with the Versed drip being held. He continues to be unresponsive and not following commands, minimally withdraws to painful stimuli. He was noted to be shivering this morning. Did not have a temperature at the time his temperature was 99 and there was no icepacks or cooling blankets on. PHYSICAL EXAMINATION: Temperature: T-max 104.4, T current 98.6, pulse 96, respirations 27, blood pressure 162/84. Oxygen saturation 100% on 30% FiO2. Fluid balance net negative 373 mL. GENERAL: Patient is intubated and sedated. He is minimally responsive. HEENT: Normocephalic, atraumatic. Pupils are dilated and unresponsive. There appears to be a surgical pupil as well on the right. NECK: Supple. Trachea is midline. No cervical lymphadenopathy. CARDIAC: Tachycardiac. Regular rate and rhythm. S1 and S2. No murmurs auscultated. PULMONARY: Coarse ventilator breath sounds bilaterally. No wheezes, rales, or rhonchi. ABDOMEN: Appears soft, nondistended, nontender. Positive bowel sounds. No obvious hepatosplenomegaly. EXTREMITIES: No lower extremity edema bilaterally. There is a well surgical incision in his right lower extremity on the knee and in the jones. He also has a history of a boil in his left lower abdominal fold in the inguinal region which appears healed. Had been draining a few days ago as per the . NEUROLOGIC: Patient is sedated. Neurologic exam is limited. He does have hyperreflexia bilaterally. No inducible clonus. No ocular clonus. His pupils are dilated and not reactive. Patient had a positive Babinski. LABS: WBC 19.1, hemoglobin 13.5, platelets 284, sodium 137, potassium 4.0, chloride 108, bicarbonate 17, BUN 26, creatinine 1.46, glucose 151, CPK 7623, troponins were negative times three, ABG this morning 7.445, pCO2 of 30.7, pO2 of 133.1, INR was 1.01. CSF studies was clear, colorless, one WBC in tube one and less than WBC on tube four with no significant RBC. Glucose was 127, total protein in a CSF was 71. IMAGING: Chest x-ray this morning showed the ET tube is in good position. OG tube is in place. There is no focal opacities or infiltrates noted. No pleural effusions and no pulmonary vasculature congestion. ASSESSMENT AND PLAN: Patient is a 62-year-old male with a past medical history of coronary artery disease (CAD) status post myocardial infarction (TX) and stents and implantable cardioverter-defibrillator (ICD) placement, history of transient ischemic attack (TIA), hypertension, diabetes, gastroesophageal reflux disease (GERD), benign prostatic hyperplasia (BPH), active smoker who presents initially with complaints of altered mental status. Patient was intubated for airway protection given his obtundation. He was also noted to be febrile on admission with leukocytosis and there was concern for sepsis. He did have an elevated lactate as well initially. Blood pressures had been stable on admission, he did become mildly hypotensive with sedation, however, his blood pressures have improved. Patient was started on broad spectrum antibiotics for sepsis with concern for possible meningitis. He was also started on Decadron empirically for bacterial meningitis and had a lumbar puncture done yesterday. 1. Neuro- History of transient ischemic attack (TIA) and syncope in the past. Presented with altered mental status with fever and leukocytosis. There was concern for possible meningitis and patient was started on broad spectrum antibiotics. He was also started on Decadron for a concern for bacterial meningitis. He had a lumbar puncture done yesterday which had a mildly enlarged opening pressure of approximately 25 cm of water. There were no WBCs or RBCs noted. The protein was elevated and the glucose was also elevated. The CSF PCR, however, was negative for any viral or bacterial agents. He also had a CT head on admission which showed a possible small old lacunar infarct in the left centrum semiovale, but no other focal acute processes. This morning patient is on sedation and is minimally responsive. He was noted to be shivering, does not have any clonus, however, he does appear to be hyperreflexic. He also had elevated very high fever overnight with a T-max of 104.4. After discussion with patient's she mentioned that he does have a prior history of serotonin syndrome, in the past he had been on amitriptyline and tramadol in addition to his BuSpar and venlafaxine. His amitriptyline and tramadol were discontinued, however, he does continue to take the BuSpar and venlafaxine. There has not been any changes to this medications recently as per the . He is also on Lamictal and Lyrica. Given patient's presentation with the hyperthermia, shivering, elevated CPK, lactic acidosis and hyperreflexia and his history there is concern for possible serotonin syndrome. He did receive succinylcholine for intubation, however, he has no prior history of any issues with anesthetic agents in the past and he also did not appear to have any rigidity or myoclonus making malignant hyperthermia or NMS less likely. Therefore, at this time we will continue with supportive measures. Will cont sedation with addition of Propofol drip and change to Versed as needed for agitation and shivering. We will discontinue Fentanyl and continue with morphine as needed for pain control. Discontinue Decadron and respiratory isolation. Patient does also have significant risk factors for stroke. His initial head CT was negative, however, if patient's mental status does not improve in the next day or worsens would consider repeat imaging of the brain and CT angio brain if renal function allows. He is unable to get an MRI given his ICD. 2. Cardiovascular system. Patient has significant cardiac history with CAD, TX in the past and stents as well as ICD. He had his ICD interrogated on admission and there were no arrhythmias noted besides a few beats of nonsustained VT earlier in March. His initial EKG did not show any evidence of acute ischemia and his cardiac enzymes have a negative times three. Patient's blood pressure has improved. We will continue to monitor and we will restart some of his antihypertensives in the next day or so if his blood pressure remains stable. We will get an echocardiogram to further evaluate given his cardiac history and given his fever with an unclear infectious source. 3. Pulmonary. Patient is intubated for respiratory failure in the setting of altered mental status. His chest x-ray does not show any evidence of acute focal opacities or infiltrates. He does not have a pulmonary history although he is a current active heavy smoker. We will start a nicotine patch and DuoNebs as needed. We will get daily ABGs and chest x-rays while intubated and vent bundle with head of bed elevation and chlorhexidine flush. Patient was on volume control ventilation and is requiring minimal support on the ventilator, however, he continues to be very desynchronous with the ventilator with significant breath stacking and double triggering. Changed patient from volume control mode to pressure control mode for vent synchrony. We will also increase his sedation to see if that improves his synchrony on the ventilator. 4. Infectious disease (ID). Patient had fever and leukocytosis, unclear infectious source at this time. His cultures have been no growth to date. He dis have a lumbar puncture done for evaluation for possible meningitis with a negative PCR. There was elevated protein which can be other inflammatory conditions. He was on broad spectrum antibiotics for possible meningitis. We will discontinue the ampicillin and ceftriaxone and continue with vancomycin and add Zosyn for broad spectrum antibiotic for empiric antibiotic coverage at this time. His lactic acidosis has trended down. We will get a CT abdomen and pelvis to further evaluation for this fever. He does have a history of recent orthopedic procedures with a fracture in his right tibia/fibula as well as with surgeries in his right knee. He had been complaining of some increased pain in his right knee in the past few days. We will get x-rays of his knee and tibia/fibula to evaluate for any possible infectious source there. Patient does also have a history of boils and did have a draining lesion in his left lower quadrant/inguinal region which appears healed currently. There is no area of fluctuance or abscess noted. 5. Renal. Patient has some acute kidney injury (DEMI) on admission. Creatinine does appear to be trending down. Also noted to have non-anion gap metabolic acidosis with appropriate respiratory compensation. Patient also with elevated CPK likely in the setting of his fever and possible serotonin syndrome. Will cont with IVF and increase NS to 150ml/hr. Will trend CPK and monitor electrolytes and replete as needed. Patient has history of diabetes, is currently on insulin drip and fingerstick glucose checks. 6. Gastrointestinal (GI). Patient has OG tube placed low intermittent sunction. We will start tube feeds pending his CT abdomen and pelvis. Continue proton pump inhibitor (PPI) for GI prophylaxis. 7. Deep venous thrombosis (DVT) prophylaxis. Code status DO NOT RESUSCITATE. TOTAL CRITICAL CARE TIME SPENT NOT INCLUDING ANY PROCEDURES: Approximately 55 minutes. MTDD
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
[2018-04-11 13:52] LABS: ABG HCO3 21.6 MEQ/L (22.0-26.0); ABG O2 SATURATION 97.5 % (95.0-99.0); ABG PARTIAL PRESSURE CO2 41.6 mmHg (35.0-45.0); ABG PARTIAL PRESSURE O2 100.7 mmHg (75.0-100.0); ABG STANDARD HCO3 21.2 MEQ/L (22.0-26.0); ABG TOTAL CO2 22.9 MEQ/L (23.0-31.0); ABG pH (ARTERIAL) 7.334 UNITS (7.350-7.450)
[2018-04-11] MEDS: LEVEMIR (INSULIN DETEMIR) 1 UNITS/0.01ML SC SCH ×2 (14:15→22:48)
[2018-04-11] MEDS: D5W IV SCH ×2 (14:44→22:49)
[2018-04-11] MEDS: NS 1,000 ML IV SCH ×2 (14:44→17:30)
[2018-04-11] MEDS: ACYCLOVIR IV SCH ×2 (14:44→22:49)
[2018-04-11] MEDS ORDERED: NS 1,000 ML IV ONE ×2 (16:15→18:00)
[2018-04-11] MEDS: HumaLOG INSULIN (NovoLOG) PER UNIT SC SCH (17:28)
[2018-04-11 18:01] LABS: CREATININE FOR GFR 1.34 MG/DL (0.70-1.30); GLOMERULAR FILTRATION RATE 57.9 (>49); POTASSIUM SERUM 4.3 MEQ/L (3.5-5.1)
[2018-04-11] MEDS ORDERED: NOREPINEPHRINE BITARTRATE 8 MG in D5W 492 ML IV SCH (19:30)
--- NOTE | 2018-04-11 19:45 | ECHO ---
DATE OF PROCEDURE: 04/11/2018 REFERRING PHYSICIAN: Dr. Perez INDICATION: Fever. Height: 188 cm Weight: 109 kg DIMENSIONS: IVS: 1.2 LV: 4.4 LVPW: 1.2 LA: 2.8 Aorta: 3.0 IVC: 2.4 Mitral E wave velocity: 46 A-wave: 53 E prime septal: 9.4 E prime lateral: 7.2 FINDINGS: Study is of very limited technical quality. The patient is intubated on a ventilator, and it was only supine exam. Left ventricle is of normal size. Mild left ventricular hypertrophy is noted. Left ventricle systolic function is grossly preserved based on limited views. I certainly cannot rule out even substantial wall motion abnormalities. Right ventricle does not appear grossly enlarged, and there is an echo artifact apparent in right-sided chambers consistent with implantable cardioverter defibrillator (ICD) lead. Both atria appear grossly normal. Aortic valve is mildly sclerotic but appears to have normal mobility. Visualization of mitral and tricuspid valves was poor but both valves appear grossly normal. Pulmonic valve was not well seen. No pericardial effusion is noted. Inferior vena cava is markedly dilated, and there is no appreciable collapse with respiration, indicative of high central venous pressure. Aortic root and aortic arch appear normal. Abdominal aorta was not seen. Doppler interrogation reveals no significant aortic stenosis or insufficiency. There is also functionally competent mitral valve. Trace tricuspid insufficiency seen. Calculated pulmonary artery pressure is approximately low 30s corresponding to mild pulmonary hypertension. Mitral inflow pattern and tissue Doppler imaging of mitral annulus revealed grade 1 diastolic dysfunction. CONCLUSIONS: 1. This study is of rather limited technical quality. 2. Normal left ventricular (LV) size with mild left ventricular hypertrophy (LVH) and grossly preserved LV systolic function based on very limited views. Grade 1 diastolic dysfunction. 3. No hemodynamically significant aortic, mitral and tricuspid valvular disease. 4. High central venous pressure. 5. Suggestive of mild pulmonary hypertension. COMMENT: Subacute bacterial endocarditis (SBE) prophylaxis is not recommended.
--- NOTE | 2018-04-11 20:18 | RO ---
DATE OF PROCEDURE: 04/11/2018 PREPROCEDURE DIAGNOSIS: Sepsis. POSTPROCEDURE DIAGNOSIS: Sepsis. PROCEDURE: Central line insertion. SURGEON: Dr. Irasema Perez INDICATION: Hypotension. Consent was obtained from patient's prior to the procedure. Indication, risks and benefits were explained at length. DESCRIPTION OF PROCEDURE: A central line insertion practices form was completed by an independent observer prior to procedure. A time-out was performed. My hands were washed immediately prior to the procedure. Full sterile technique was maintained throughout the procedure, including surgical cap, mask with protective eye wear, full gown and sterile gloves. The patient was placed in Trendelenburg position. The right neck and chest region was prepped using chlorhexidine scrub and draped in sterile fashion using a fenestrated drape. The right internal jugular vein was identified using the ultrasound. Using real-time [id number] guidance, the introducer needle was inserted into the right internal jugular vein under direct ultrasound visualization. Venous blood was withdrawn. The syringe was removed, and a guidewire was advanced into the introducer needle. The introducer needle was exchanged over the guidewire. A small incision was made at the skin surface with a scalpel and a dilator was exchanged over the guidewire. After appropriate dilation was obtained, the dilator was exchanged over the wire for a triple lumen central venous catheter. The wire was removed, and the catheter was sutured in place at 18 cm. A sterile dressing was placed over the catheter at the insertion site. The patient tolerated the procedure without any hemodynamic compromise. There was minimal blood loss. At the time of procedure, all ports were aspirated and flushed properly. Postprocedure chest x-ray is pending. [facility]
--- NOTE | 2018-04-11 21:12 | REPVR ---
EXAM: CT Head Without Contrast EXAM DATE/TIME: 04/11/2018 8:25 PM CLINICAL HISTORY: 62 years old, male; Signs and symptoms; Altered mental status/memory loss; Confusion or disorientation TECHNIQUE: Axial computed tomography images of the head/brain without contrast. All CT scans at this facility use at least one of these dose optimization techniques: automated exposure control; mA and/or kV adjustment per patient size (includes targeted exams where dose is matched to clinical indication); or iterative reconstruction. COMPARISON: CT Head without contrast 04/10/2018 5:52 AM FINDINGS: Brain: In comparison to prior study: Large foci of decrease attenuation in the posterior parietal lobes bilaterally and anterior and mid right parietal lobe consistent with interval development of infarcts, likely subacute, in the right and left [employer] and right MCA territories in comparison to the prior study. Diffuse decreased attenuation in both cerebellar hemispheres consistent with large global subacute infarcts. Bilateral effacement of the cortical sulci consistent with the presence of global cerebral edema. Decreased attenuation in the aga and midbrain worrisome for interval infarction. Ventricles: Interval enlargement of the lateral and third ventricles in comparison to the prior study without significant enlargement of the fourth ventricle. Bones/joints: Normal. No acute fracture. Sinuses: Normal as visualized. No acute sinusitis. Mastoid air cells: Normal as visualized. No mastoid effusion. Soft tissues: Normal. IMPRESSION: 1. Large foci of decrease attenuation in the posterior parietal lobes bilaterally and anterior and mid right parietal lobe not demonstrated previously consistent with interval development of infarcts, likely subacute, in the right and left [employer] and right MCA territories in comparison to the prior study. 2. Diffuse decreased attenuation in both cerebellar hemispheres consistent with large global subacute infarcts. 3. Bilateral effacement of the cortical sulci in comparison to the prior study consistent with the presence of global cerebral edema. 4. Interval enlargement of the lateral and third ventricles in comparison to the prior study without significant enlargement of the fourth ventricle. 5. Decreased attenuation in the aga and midbrain worrisome for interval infarction. THIS REPORT CONTAINS FINDINGS THAT MAY BE CRITICAL TO PATIENT CARE. The findings were verbally communicated via telephone conference with BEVERLY WAGNER at 9:08 PM EST on 04/11/2018. The findings were acknowledged and understood.. Electronically signed by: Umberto Shah On 04/11/2018 21:12:04 PM
[2018-04-11] MEDS ORDERED: MANNITOL 20% 100GM/500 ML BAG IV ONE (21:45)
[2018-04-11 22:16] LABS: ABG BASE EXCESS -4.2 (-2.0-2.0); ABG O2 SATURATION 96.2 % (95.0-99.0); ABG PARTIAL PRESSURE CO2 58.7 mmHg (35.0-45.0); ABG PARTIAL PRESSURE O2 98.6 mmHg (75.0-100.0); ABG TOTAL CO2 25.8 MEQ/L (23.0-31.0)
[2018-04-11 23:57] LABS: ABG HCO3 20.3 MEQ/L (22.0-26.0); ABG O2 SATURATION 97.8 % (95.0-99.0); ABG PARTIAL PRESSURE CO2 38.3 mmHg (35.0-45.0); ABG PARTIAL PRESSURE O2 110.5 mmHg (75.0-100.0); ABG STANDARD HCO3 20.4 MEQ/L (22.0-26.0); ABG TOTAL CO2 21.5 MEQ/L (23.0-31.0); ABG pH (ARTERIAL) 7.342 UNITS (7.350-7.450)
[2018-04-12] VITALS (19 sets, daily range): BP systolic 69–131; BP diastolic 46–73
[2018-04-12] MEDS: HumaLOG INSULIN (NovoLOG) PER UNIT SC SCH ×2 (00:35→06:23)
[2018-04-12] MEDS: VANCOMYCIN HCL 1,000 MG, VIAL MATE ADAPTER 1 EACH in D5W 250 ML IV SCH (00:35)
[2018-04-12 01:15] LABS: BLOOD UREA NITROGEN 26 MG/DL (7-18); CALCIUM LEVEL 7.9 MG/DL (8.8-10.2); CARBON DIOXIDE LEVEL 20 MEQ/L (21-32); CHLORIDE LEVEL 111 MEQ/L (98-107); CREATININE FOR GFR 1.21 MG/DL (0.70-1.30); GLOMERULAR FILTRATION RATE > 60.0 (>49); GLUCOSE, FASTING 330 MG/DL (70-100); MAGNESIUM LEVEL 2.5 MG/DL (1.8-2.4); PHOSPHORUS LEVEL 3.3 MG/DL (2.5-4.9); POTASSIUM SERUM 5.4 MEQ/L (3.5-5.1); SODIUM LEVEL 142 MEQ/L (136-145)
[2018-04-12] MEDS: PROPOFOL 1,000 MG in APPROPRIATE DILUENT 1 EA IV SCH (01:45)
[2018-04-12] MEDS ORDERED: NS 1,000 ML IV ONE (04:00)
[2018-04-12] MEDS: PIPERACILLIN/TAZOBACTAM SOD 3.375 GM in D5W MINI-BAG PLUS 50 ML IV SCH (04:37)
[2018-04-12 04:41] LABS: MEAN CORPUSCULAR HEMOGLOBIN 27.3 pg (27.0-33.0); MEAN CORPUSCULAR HGB CONC 32.3 g/dl (32.0-36.5); MEAN CORPUSCULAR VOLUME 84.5 fl (80.0-96.0); PLATELET COUNT, AUTOMATED 276 10^3/uL (150-450); RED BLOOD COUNT 4.14 10^6/uL (4.30-6.10); WHITE BLOOD COUNT 20.9 10^3/uL (4.0-10.0)
[2018-04-12 04:47] LABS: HEMOGLOBIN 11.3 g/dl (13.5-17.5)
[2018-04-12 04:47] LABS: CALCIUM LEVEL 8.6 MG/DL (8.8-10.2); CREATININE FOR GFR 1.36 MG/DL (0.70-1.30); GLOMERULAR FILTRATION RATE 56.9 (>49); MAGNESIUM LEVEL 2.6 MG/DL (1.8-2.4); POTASSIUM SERUM 3.8 MEQ/L (3.5-5.1)
[2018-04-12 05:05] LABS: ALBUMIN 2.8 GM/DL (3.2-5.2); CALCIUM LEVEL 8.8 MG/DL (8.8-10.2); CREATININE FOR GFR 1.37 MG/DL (0.70-1.30); GLOMERULAR FILTRATION RATE 56.4 (>49); PHOSPHORUS LEVEL 2.3 MG/DL (2.5-4.9); POTASSIUM SERUM 3.9 MEQ/L (3.5-5.1)
[2018-04-12 05:57] LABS: ABG STANDARD HCO3 20.4 MEQ/L (22.0-26.0)
[2018-04-12 06:00] LABS: ABG HCO3 18.3 MEQ/L (22.0-26.0); ABG O2 SATURATION 98.3 % (95.0-99.0); ABG PARTIAL PRESSURE CO2 28.7 mmHg (35.0-45.0); ABG PARTIAL PRESSURE O2 132.1 mmHg (75.0-100.0); ABG TOTAL CO2 19.2 MEQ/L (23.0-31.0); ABG pH (ARTERIAL) 7.422 UNITS (7.350-7.450)
[2018-04-12] MEDS: D5W IV SCH (06:22)
[2018-04-12] MEDS: ACYCLOVIR IV SCH (06:22)
[2018-04-12] MEDS: HEPARIN SOD (PORCINE) 5000 UNITS/ML VIAL SQ SCH (06:23)
--- NOTE | 2018-04-12 06:51 | REP ---
Portable chest x-ray: Single view. History: Central line placement. Comparison study: 06:55 a.m. film on this date. Findings: Endotracheal tube remains in good position just above the level of the transverse aorta. An NG tube enters the left upper quadrant. A right internal jugular central venous line is seen terminating in the expected location of the superior vena cava. There is no evidence of pneumothorax. No infiltrate is seen. Heart is not enlarged. A pacemaker is again noted via the left side. Impression: Right IJ line, tip in the expected location of the SVC. No complication identified. Endotracheal and nasogastric tubes remain in good position. Pacemaker. Electronically Signed by Almas Chou MD 04/12/2018 08:27 A
[2018-04-12] MEDS: IPRATROPIUM 0.5MG/ALBUTEROL 2.5MG INH SOL UD 3ML (DUONEB)(J7620) NEB SCH (07:40)
--- NOTE | 2018-04-12 08:14 | REP ---
Portable chest x-ray: Sitting AP view. History: Respiratory failure. Comparison study: April 11, 2018. Findings: Endotracheal tube remains in good position. NG tube enters left upper quadrant. Right IJ line remains in place unchanged. Pacemaker is seen. Heart is not enlarged. There is minimal plate-like atelectasis at the lung bases. Lung limon are otherwise clear. Electronically Signed by Almas Chou MD 04/12/2018 08:05 A
[2018-04-12] MEDS ORDERED: D5W 1,000 ML IV SCH (08:15)
--- NOTE | 2018-04-12 09:52 | PHACANCOPD ---
PHARMACY VANCOMYCIN DOSING Pt Demographics Demographics Patient Age:62 , Weight:107.000 , Gender: male Adjusted Body Weight Date: 04/11/18, Adjusted Body Weight: Kg Vancomycin Vancomycin indication: SEPSIS Vancomycin Target Ranges: 15-20 mcg/ml Vancomycin Load Y/N: Yes Load Dose Date Time Vancomycin Load Dose: 2g Date: 04/11/18 Time: 1200 Vancomycin Dose Date: 04/11/18. Current Vancomycin Dose: [1g IV Q12H] Intermittent Dosing?: No Labs Micro Microbiology 04/10/18 Blood Culture - Preliminary, Resulted No Growth after 48 hours. All Specime... 04/10/18 Blood Culture - Preliminary, Resulted No Growth after 48 hours. All Specime... 04/10/18 Gram Stain - Final, Complete 04/10/18 CSF Culture - Final, Complete 04/10/18 - Final, Complete 04/10/18 Urine Culture - Final, Complete Creatinine Clearance Date:04/11/18. Est Creatinine Clearance: [~59ml/min]. Assessment and Plan Maintaining Current Dose?: Yes Reason for dose change: No Dose Change Pharmacist Note Pharmacist Note 04/12/18: Day #2 IV vancomycin therapy. Scr remains stable today at 1.37 from 1.46 yesterday. BUN and output also remain stable. We will continue the patient on his current regimen of 1g IV Q12H and schedule a trough level to be drawn tomorrow, 04/13/18, at 1100. We will continue to monitor and make dose adjustments if needed. Date: 04/11/18. Pharmacist note: Day #1 vancomycin therapy initiated with a 2g loading dose, followed by a maintenance regimen of 1g IV Q12H for the treatment of sepsis - aiming for a goal trough of 15-20mcg/ml. The patient presents with acute respiratory failure requiring ventilation as well as altered mental status. He is s/p 2 days of IV ampicillin and IV rocephin, now switched to IV vanco and zosyn. It is noted that the patient did receive 1g of vancomycin yesterday (04/10/18) @0900. WBC and LA are elevated, and the patient is febrile. The patient does have a PMH of MRSA in 2003 as well as vanco use here at [facility] in 2012. Urine culture, blood cultures, and cerebral spinal fluid cultures are pending. Scr is at 1.46 today from 1.74 on admit. Patient's scr appears to fluctuate quite a bit so we will continue to monitor and schedule a trough level accordingly. [facility] Apr 12, 2018 09:52
--- NOTE | 2018-04-12 10:46 | CCN ---
CRITICAL CARE PROGRESS NOTE: 04/12/2018 Yesterday morning patient was restarted on cooling blanket. He was initially placed on propofol for sedation, however, was noted to be hypotensive. Propofol and versed were stopped later in the morning. Sedation was held off through the afternoon and patient was noted to continue to be unresponsive, was not withdrawing to painful stimuli any longer. In the early evening, patient was noted to not be over-breathing on the ventilator. He was no longer hyperthermic, but was now hypothermic. He was also noted to be progressively hypotensive. Was given 2 liters normal saline bolus with minimal improvement in his blood pressure. Patient was also noted now to no longer have any gag reflex. Did not have any corneal reflex, was not withdrawing to pain. He therefore had a repeat CT head ordered and patient also had a right IJ central line placed yesterday evening and was started on Levophed for blood pressure support. 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 He also had diffuse decreased attenuation in both cerebellar hemispheres consistent with large global subacute infarcts. Patient also had bilateral effacement of his cortical sulci, not seen on the previous study consistent with global cerebral edema. There was also interval enlargement of his lateral and third ventricles compared to the prior study. The patient also had some areas of decreased attenuation in the aga and mid brains which was concerning for subacute infarction. After the findings of the head CT, patient's ventilator settings were adjusted for mild hyperventilation. He was also given a dose of Mannitol for the cerebral edema. Patient's was notified about the findings yesterday evening and the options were discussed with her at that time. Patient had previously expressed that his quality of life was very important for him and that he would not have wanted to be maintained on a ventilator or in a assisted with severe disability. He was made DO NOT RESUSCITATE (DNR) on admission. PHYSICAL EXAMINATION: Patient was hypothermic overnight, was placed on a warming blanket with a goal temperature of 96. His pulse was 76, respiratory rate 26, blood pressure 117/70, oxygen saturation 99% on 30% FiO2. In: 6.6 liters. Out: 4.9 liters yesterday, net positive 1.6 liters. GENERAL: Patient is intubated, is not sedated. HEENT: He is unresponsive to any stimuli. Pupils are dilated and unresponsive. NECK: Supple. Trachea is midline. There is no cervical adenopathy. CARDIAC: Regular rate and rhythm. S1 and S2. No murmurs auscultated. PULMONARY: Coarse ventilator breath sounds bilaterally. A few crackles at the bases. No wheezes or rhonchi. ABDOMEN: Soft, nontender, nondistended. No bowel sounds auscultated. No obvious hepatosplenomegaly. EXTREMITIES: No lower extremity edema bilaterally. There is a well healed surgical incision in his right lower extremity on the knee and in the jones. NEURO: no pupillary reflex, no corneal or gag reflex. Not withdrawing to pain, not triggering ventilator LABS: WBC 20.9, hemoglobin 11.3, platelets 276. Chemistry: Sodium 151, potassium 3.9, chloride 121, bicarbonate 21, BUN 27, creatinine 1.37. Platelets 317. Phosphorous 2.3, calcium 8.8, magnesium 2.6. Serum osm 346. ABG: PH 7.422, pCO2 28.7, pO2 132. IMAGING: Chest x-ray this morning showed ET tube and OG tube in good position. Right IJ line is in place. There are some trace effusions bilaterally and increased pulmonary vascular congestion. Echo is a limited study with a normal ejection fraction (EF), grade 1 diastolic dysfunction. No significant valvular disease. Evidence of increased central venous pressure (CVP). 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 There was also diffuse decreased attentuation and cerebellar hemispheres consistent with large global subacute infarcts. There is new effacement bilaterally of the cortical sulci consistent with global cerebral edema. There has also been interval enlargement of the lateral and third ventricles in comparison to the prior study without significant enlargement of the fourth ventricle. There is also some decreased attenuation in the aga and midbrain concerning for interval infarct. ASSESSMENT AND PLAN: Patient is a 62-year-old male with a history of coronary artery disease (CAD) status post myocardial infarction (CA) and stents and implantable cardioverter-defibrillator (ICD), history of transient ischemic attack (TIA), hypertension, diabetes, gastroesophageal reflux disease (GERD), benign prostatic hyperplasia (BPH), active smoker who presents with complaints of altered mental status. Patient was intubated for airway protection. He was also febrile on admission with leukocytosis with concern for sepsis. Patient did also have an elevated lactate on admission. Patient was treated with broad spectrum antibiotics for concern of possible bacterial meningitis as well as with Decadron. He had a lumbar puncture done which was not consistent with bacterial meningitis and CSF PCR was negative. Yesterday evening, patient was noted to be less responsive. Sedation had been held since earlier in the morning and patient was progressively less responsive with losses of reflexes and did not appear to be triggering on the ventilator. Patient was also noted to be hypotensive requiring Levophed for blood pressure support. A repeat head CT done showed evidence of extensive subacute stroke with global cerebral edema, interval dilation of his lateral and third ventricles. There was also evidence of infarct in his midbrain and aga. Patient was given a dose of Mannitol yesterday evening for the cerebral edema. His vent settings were also adjusted for mild hyperventilation. Discussed with the the findings of the head CT and that patient had devastating subacute stroke. Apparently patient had symptoms even earlier than described on the day prior to admission he had seemed a bit off per family and a little bit confused. That night he was complaining of dizziness and had gone to bed early. Later the next morning on day of admission was when he was found to be unresponsive and brought to the emergency department at that time. Patient likely had developing stroke at that time and he presented late into his stroke presentation. At this time his options are limited. If patient were a candidate for a hemicraniotomy post surgery he would still have severe neurologic deficits. He also did present late and so he may not be a good surgical candidate at this time. As per previous discussions with the patient and his , she and the rest of the family felt that he would not have wanted to be kept on the ventilator given his poor neurologic prognosis at this time. Therefore, the decision was made early this morning for a palliative extubation and for COMFORT CARE MEASURES ONLY. Patient's , his daughters and other family members were at bedside and patient was palliatively extubated this morning at 8:43 a.m. CODE STATUS: DO NOT RESUSCITATE (DNR), DO NOT INTUBATE (DNI). TOTAL CRITICAL CARE TIME SPENT NOT INCLUDING ANY PROCEDURES: Approximately 45 minutes. RIYAD
--- NOTE | 2018-04-12 12:32 | DS.PDOC ---
Discharge Summary General Date of Admission Apr 10, 2018 at 08:55 Date of Discharge 04/12/18 Discharge Summary PROCEDURES PERFORMED DURING STAY: Endotracheal intubation, RIJ central venous catheter insertion ADMITTING DIAGNOSES: 1. Encephalopathy DISCHARGE DIAGNOSES: 1. Subacute CVA COMPLICATIONS/CHIEF COMPLAINT: Acute Respiratory Failure. HISTORY OF PRESENT ILLNESS: Mr. Kahn is a 62-year-old male who presented to the to the emergency department by ambulance. He was unresponsive and therefore the history was obtained from his and from the emergency room. According to the patient's , he went to bed around 11:30 last night but expressed to her the was not feeling very well. He described this as feeling somewhat dizzy. He went to sleep and his stated that he normally gets up three or four times a night to use the bathroom; however, he did not get up at all during the night. She states that this morning around 5 o'clock he was very restless in bed and when she addressed him he had kind of garbled speech. She told them that she was calling the ambulance and he initially said no but then stopped protesting and when the ambulance arrived he reportedly became unresponsive. Upon arrival to the emergency room, he apparently was bluish in color. He was intubated. The patient's states that he had not been having any other acute illnesses or complaining of any other issues. He had been noted to be off earlier in the day with some confusion. She states he has not been having fever or chills. She states he has not been complaining of chest pain or difficulty breathing. Denied abdominal pain, nausea or vomiting. The patient does have an extensive cardiac history and according to his has had multiple myocardial infarctions, as well as rales 13 stents placed in the past. He had followed with cardiology in the past. His believed that he followed with Dr. Boston. He does have an ICD; however, he has not been back to cardiology in about 2 years. He also has a history of diabetes mellitus type 2 and is insulin dependent. He is on Levemir 70 units in the morning and 75 units in the evening. He does take Humulin insulin 20 units twice a day. According to his , he does not check fingerstick blood sugars. He has been hospitalized in the past and has had uncontrolled blood sugars that were addressed in previous hospitalizations. The patient is also a smoker. He is currently smoking about a pack a day HOSPITAL COURSE: Patient was febrile on admission with leukocytosis and there was concern for sepsis. He did have an elevated lactate as well initially. Blood pressures had been stable on admission, he did become mildly hypotensive with sedation, however, his blood pressures then improved. Patient was started on broad spectrum antibiotics for sepsis with concern for possible meningitis. He was also started on Decadron empirically for bacterial meningitis and had a lumbar puncture done on 04/10/18. There was a mildly elevated opening pressure of approximately 25 cm of water. There were no WBCs or RBCs noted. The protein was elevated and the glucose was also elevated. The CSF PCR, however, was negative for any viral or bacterial agents. He also had a CT head on admission which showed a possible small old lacunar infarct in the left centrum semiovale, but no other focal acute processes. The next day patient was noted to be shivering with fevers overnight to 104.4. He does have a prior history of serotonin syndrome, in the past he had been on amitriptyline and tramadol in addition to his BuSpar and venlafaxine. His amitriptyline and tramadol were discontinued, however, he does continue to take the BuSpar and venlafaxine. T here has not been any changes to this medications recently as per the . Given the AMS, hyperthermia, shivering, elevated CPK, lactic acidosis and hyperreflexia there was some suspicion for serotonin syndrome. Patient has been receiving versed for sedation and other supportive care. He had his ICD interrogated on admission and there were no arrhythmias noted besides a few beats of nonsustained VT earlier in March. His cardiac enzymes have a negative times three. Patient also had further infectious work-up with echocardiogram and CT Abdomen/ pelvis which did not show and focal nidus for infection. He also had imaging of his right leg where he had surgery on tibia/fibula and right knee. Sedation was held off through the afternoon to access his mental status yesterday and patient was noted to be progressively less responsive. He was not withdrawing to painful stimuli any longer. In the early evening, patient was noted to not be over-breathing on the ventilator. He was no longer hyperthermic, but was now hypothermic. He was also noted to be progressively hypotensive. Was given 2 liters normal saline bolus with minimal improvement in his blood pressure. Patient was also noted now to no longer have any gag reflex. Did not have any corneal reflex, was not withdrawing to pain. He therefore had a repeat CT head ordered and patient also had a right IJ central line placed yesterday evening and was started on Levophed for blood pressure support. 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 He also had diffuse decreased attenuation in both cerebellar hemispheres consistent with large global subacute infarcts. Patient also had bilateral effacement of his cortical sulci, not seen on the previous study consistent with global cerebral edema. There was also interval enlargement of his lateral and third ventricles compared to the prior study. The patient also had some areas of decreased attenuation in the aga and mid brains which was concerning for interval infarction. After the findings of the head CT, patient's ventilator settings were adjusted for mild hyperventilation. He was also given a dose of Mannitol for the cerebral edema. As per previous discussions with the patient and his , she and the rest of the family felt that he would not have wanted to be kept on the ventilator given his poor neurologic prognosis at this time. Therefore, the decision was made early this morning for a palliative extubation and for COMFORT CARE MEASURES ONLY. Patient's , his daughters and other family members were at bedside and patient was palliatively extubated this morning at 8:43 a.m. DISCHARGE MEDICATIONS: Please see below. ALLERGIES: Please see below. PHYSICAL EXAMINATION ON DISCHARGE: Patient was hypothermic overnight, was placed on a warming blanket with a goal temperature of 96. His pulse was 76, respiratory rate 26, blood pressure 117/70, oxygen saturation 99% on 30% FiO2. In: 6.6 liters. Out: 4.9 liters yesterday, net positive 1.6 liters. GENERAL: Patient is intubated, is not sedated. HEENT: He is unresponsive to any stimuli. Pupils are dilated and unresponsive. NECK: Supple. Trachea is midline. There is no cervical adenopathy. CARDIAC: Regular rate and rhythm. S1 and S2. No murmurs auscultated. PULMONARY: Coarse ventilator breath sounds bilaterally. A few crackles at the bases. No wheezes or rhonchi. ABDOMEN: Soft, nontender, nondistended. No bowel sounds auscultated. No obvious hepatosplenomegaly. EXTREMITIES: No lower extremity edema bilaterally. There is a well healed surgical incision in his right lower extremity on the knee and in the jones. LABORATORY DATA: Please see below. IMAGING: CT head done 04/11/2018 showed large foci of decreased attenuation in the posterior parietal lobes bilaterally in the anterior and mid right parietal lobe not seen on previous imaging consistent with interval development of subacute infarcts in the right and left [employer]EARCH SCIENTIST and right MCA territories. There was also diffuse decreased attentuation and cerebellar hemispheres consistent with large global subacute infarcts. There is new effacement bilaterally of the cortical sulci consistent with global cerebral edema. There has also been interval enlargement of the lateral and third ventricles in comparison to the prior study without significant enlargement of the fourth ventricle. There is also some decreased attenuation in the aga and midbrain concerning for interval infarct. PROGNOSIS: Very poor ACTIVITY: None DIET: None DISCHARGE PLAN: DISPOSITION: 20 . DISCHARGE INSTRUCTIONS: 1. None ITEMS TO FOLLOWUP ON ON OUTPATIENT: 1. None DISCHARGE CONDITION: TIME SPENT ON DISCHARGE: Greater than 20 minutes. Vital Signs/I&Os Vital Signs Date Time Temp Pulse Resp B/P (MAP) Pulse Ox O2 Delivery O2 Flow Rate FiO2 04/12/18 08:30 95 26 110/70 (83) 98 Ventilator 30 04/12/18 08:00 95.2 04/10/18 06:30 10.0 I&O- Last 24 Hours up to 6 AM 04/12/18 06:00 Intake Total 8853.3 ml Output Total 8915 ml Balance -61.7 ml Laboratory Data Labs 24H Laboratory Tests 2 04/11/18 13:34: Blood Gas Bicarbonate Standard 21.2L, Arterial Blood pH 7.334L, Arterial Blood Partial Pressure CO2 41.6, Arterial Blood Partial Pressure O2 100.7H, Arterial Blood Total CO2 22.9L, Arterial Blood HCO3 21.6L, Arterial Blood Base Excess - 4.0L, Arterial Blood Oxygen Saturation 97.5 04/11/18 13:49: Bedside Glucose (Misc Panel) 195H 04/11/18 17:14: Anion Gap 8, Glomerular Filtration Rate 57.9, Blood Urea Nitrogen 29H, Creatinine 1.34H, Sodium Level 138, Potassium Level 4.3, Chloride Level 108H, Carbon Dioxide Level 22, Calcium Level 8.0L, Total Creatine Kinase 3219H 04/11/18 17:24: Bedside Glucose (Misc Panel) 263H 04/11/18 22:05: Blood Gas Bicarbonate Standard 21.0L, Arterial Blood pH 7.230*L, Arterial Blood Partial Pressure CO2 58.7H, Arterial Blood Partial Pressure O2 98.6, Arterial Blood Total CO2 25.8, Arterial Blood HCO3 24.0, Arterial Blood Base Excess - 4.2L, Arterial Blood Oxygen Saturation 96.2 04/11/18 23:45: Blood Gas Bicarbonate Standard 20.4L, Arterial Blood pH 7.342L, Arterial Blood Partial Pressure CO2 38.3, Arterial Blood Partial Pressure O2 110.5H, Arterial Blood Total CO2 21.5L, Arterial Blood HCO3 20.3L, Arterial Blood Base Excess - 5.0L, Arterial Blood Oxygen Saturation 97.8 04/12/18 00:11: Bedside Glucose (Misc Panel) 281H 04/12/18 00:36: Anion Gap 11, Glomerular Filtration Rate > 60.0, Blood Urea Nitrogen 26H, Creatinine 1.21, Sodium Level 142, Potassium Level 5.4H, Chloride Level 111H, Carbon Dioxide Level 20L, Calcium Level 7.9L, Phosphorus Level 3.3, Magnesium Level 2.5H 04/12/18 03:55: Anion Gap 8, Glomerular Filtration Rate 56.9, Blood Urea Nitrogen 27H, Creatinine 1.36H, Sodium Level 150#H, Potassium Level 3.8#, Chloride Level 120H, Carbon Dioxide Level 22, Calcium Level 8.6L, Magnesium Level 2.6H 04/12/18 04:07: Anion Gap 9, Glomerular Filtration Rate 56.4, Blood Urea Nitrogen 27H, Creatinine 1.37H, Sodium Level 151H, Potassium Level 3.9, Chloride Level 121H, Carbon Dioxide Level 21, Calcium Level 8.8, Nucleated Red Blood Cells % (auto) 0.0, Osmolality 346H, Phosphorus Level 2.3#L, Albumin 2.8L 04/12/18 05:50: Blood Gas Bicarbonate Standard 20.4L, Arterial Blood pH 7.422, Arterial Blood Partial Pressure CO2 28.7L, Arterial Blood Partial Pressure O2 132.1H, Arterial Blood Total CO2 19.2L, Arterial Blood HCO3 18.3L, Arterial Blood Base Excess - 5.0L, Arterial Blood Oxygen Saturation 98.3 CBC/BMP Laboratory Tests 04/11/18 17:14 Calcium Level 8.0 L 04/12/18 00:36 Calcium Level 7.9 L 04/12/18 03:55 Calcium Level 8.6 L 04/12/18 04:07 Red Blood Count 4.14 L, Mean Corpuscular Volume 84.5, Mean Corpuscular Hemoglobin 27.3, Mean Corpuscular Hemoglobin Concent 32.3, Red Cell Distribution Width 15.0 H, Anion Gap 9 FSBS Laboratory Tests Test 04/11/18 13:49 04/11/18 17:24 04/12/18 00:11 Range/Units Bedside Glucose (Misc Panel) 195 263 281 80-115 MG/DL Microbiology Microbiology 04/10/18 Blood Culture - Preliminary, Resulted No Growth after 48 hours. All Specime... 04/10/18 Blood Culture - Preliminary, Resulted No Growth after 48 hours. All Specime... 04/10/18 Gram Stain - Final, Complete 04/10/18 CSF Culture - Final, Complete 04/10/18 - Final, Complete 04/10/18 Urine Culture - Final, Complete Allergies Coded Allergies: Clarithromycin (Verified Allergy, Intermediate, HIVES, 02/19/18) TAPE (Verified Allergy, Unknown, BLISTERS, 02/19/18) BEVERLY WAGNER MD Apr 12, 2018 12:32
== END 2018-04-12 09:01 | disposition expired | DRG 208 ==
LOC: M ED 05:45 → M ED INP 08:55 → M ICU 13:18
PROVIDERS: ADMIT Internal Medicine Pulmonary Disease; ATTEND Internal Medicine Pulmonary Disease
PROC: 5A1945Z Respiratory Ventilation, 24-96 Consecutive Hours (ICD-10-PCS; principal; 2018-04-10)
PROC: 0BH17EZ Insertion of Endotracheal Airway into Trachea, Via Natural or Artificial Opening (ICD-10-PCS; 2018-04-10)
PROC: 009U3ZX Drainage of Spinal Canal, Percutaneous Approach, Diagnostic (ICD-10-PCS; 2018-04-10)
PROC: 02HV33Z Insertion of Infusion Device into Superior Vena Cava, Percutaneous Approach (ICD-10-PCS; 2018-04-11)
DX: J96.01 Acute respiratory failure with hypoxia (principal); I63.533 Cerebral infarction due to unspecified occlusion or stenosis of bilateral posterior cerebral arteries; G93.6 Cerebral edema; G93.40 Encephalopathy, unspecified; N17.9 Acute kidney failure, unspecified; E87.2 Acidosis; I25.10 Atherosclerotic heart disease of native coronary artery without angina pectoris; I25.2 Old myocardial infarction; I10 Essential (primary) hypertension; E11.40 Type 2 diabetes mellitus with diabetic neuropathy, unspecified; K21.9 Gastro-esophageal reflux disease without esophagitis; Z51.5 Encounter for palliative care; Z66 Do not resuscitate; N40.1 Benign prostatic hyperplasia with lower urinary tract symptoms; R35.0 Frequency of micturition; F17.210 Nicotine dependence, cigarettes, uncomplicated; R68.0 Hypothermia, not associated with low environmental temperature; E11.65 Type 2 diabetes mellitus with hyperglycemia; F60.2 Antisocial personality disorder; Z79.4 Long term (current) use of insulin; Z79.899 Other long term (current) drug therapy; Z45.02 Encounter for adjustment and management of automatic implantable cardiac defibrillator; Z91.048 Other nonmedicinal substance allergy status; Z88.1 Allergy status to other antibiotic agents; Z95.5 Presence of coronary angioplasty implant and graft